=== PATIENT | male | born 1955 | race Caucasian/White ===

== ENCOUNTER 2020-12-03 12:20 | Inpatient (IN) | payer MEDICARE, SELFPAY ==
[2020-12-03] VITALS (9 sets, daily range): BP systolic 152–198; BP diastolic 80–113; PULSE 126–138; RESP 15–19; TEMP 36.6–37.8; O2SAT 95–99; BMI 26.6; BMI 27.2
--- NOTE | 2020-12-03 13:27 | XR_ITS ---
WS: [id number] Portable AP upright chest, 12/03/2020 Clinical Data: tachycardia Comparison: Portable chest, 02/03/2015. Findings: No nodules, masses or effusions are seen. The heart is normal. The pulmonary vascularity is not increased. No pneumonia or pneumothorax is seen. The aortic arch and descending aorta shows mild tortuosity. XR/XR chest 1V portable [id number] Impression: Atherosclerosis.
--- NOTE | 2020-12-03 13:28 | ECG_ITS ---
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 Measurements Intervals [place] Rate: 138 P: 46 GA: 139 QRS: 23 QRSD: 89 T: 55 QT: 371 QTc: 563 Interpretive Statements SINUS TACHYCARDIA NONSPECIFIC T-WAVE ABNORMALITY ABNORMAL RHYTHM ECG No previous ECG available for comparison Electronically Signed On 12-03-2020 19:25:38 CDT by Petr Emmanuel M.D. [id number] f
--- NOTE | 2020-12-03 15:28 | ECG_ITS ---
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 Measurements Intervals [place] Rate: 127 P: 43 MS: 148 QRS: 18 QRSD: 94 T: 27 QT: 293 QTc: 426 Interpretive Statements SINUS TACHYCARDIA Compared to ECG 12/03/2020 13:11:42 T-wave abnormality no longer present Electronically Signed On 12-03-2020 19:28:42 CDT by Petr Emmanuel M.D. [email or web address] [facility] centerfromAtoBnorwalk memorial hospitalGraphenea/store/OM/[id number]
--- NOTE | 2020-12-03 15:44 | W.ED.GENADLT ---
HPI - General Adult General: Chief complaint: General Medical Stated complaint: HIGH HEARTRATE Time Seen by Provider: 12/03/20 15:33 History of Present Illness: HPI narrative: The patient is a 65-year-old male who comes to the ER after he visited his primary care doctor's clinic today. He sent him to the ER for tachycardia. Patient says yesterday he started having symptoms of nausea and vomiting as well as abdominal cramping which turned into diarrhea as well. He says he is having brown vomit and yellowish diarrhea. He says he feels dry in the mouth and lightheaded when he stands up. Heart rate 138 on arrival Onset (ago): hour(s) (18) Severity: moderate Pain Consistency: constant Relieving factors: none Exacerbating factors: none Associated symptoms: Reports nausea, vomiting and weakness; Deny chest pain, cough, dyspnea, fevers/chills, headache(s), rash or short of breath Review of Systems General: Reports: 10 or more systems reviewed and unremarkable except in HPI and below Const: Denies: fatigue Eyes: Denies: change in vision, blurry vision or eye redness ENMT: Denies: throat pain, swelling of lips/tongue, ear or mastoid pain or nasal congestion Card: Denies: chest pain Resp: Denies: dyspnea GI: Reports: nausea, vomiting and diarrhea : Denies: flank pain, urinary frequency or urinary urgency Musc: Denies: neck pain, back pain, extremity pain, joint pain, joint redness, limited range of motion or muscle weakness Skin/Breast: Denies: rash, pruritus, erythema, skin pain or skin tenderness Neuro: Denies: headache(s) Psych: Denies: anxiety or depression Endo: Denies: polyuria All/Imm: Denies: urticaria, throat swelling or tongue swelling Physical Exam Const: COMMON NORMALS: no acute distress, average body habitus, patient oriented x3, no limitations, healthy appearing, alert and well nourished GENERAL APPEARANCE: cooperative, comfortable, well kempt and well developed ORIENTATION/CONSCIOUSNESS: Yes awake, Yes oriented to person, Yes oriented to place and Yes oriented to time HENMT: COMMON NORMALS: normocephalic, external ears normal and Normal external nose present HEAD & SCALP: normal to inspection and normocephalic NOSE: Normal external nose present EXTERNAL EAR: Yes external ears normal MOUTH: Normal oral and palatal mucosa present THROAT: posterior oropharynx normal Eye: COMMON NORMALS: Equal, round and reactive pupils present and EOMs intact bilaterally GENERAL EYE: appearance normal, both eyes and all related structures PUPIL: Yes Equal, round and reactive pupils present Neck/C-Spine: COMMON NORMALS: full ROM, no lymphadenopathy, no meningeal signs and no JVD GENERAL: Yes normal visual inspection Lymph: LYMPHATIC: no lymphadenopathy noted Chest: COMMONS NORMALS: normal inspection of the chest and normal palpation of entire chest wall Resp: COMMON NORMALS: normal respiratory effort, No retractions, No use of accessory muscles, clear to auscultation bilaterally and percussion normal EFFORT & INSPECTION: Yes able to speak in complete sentences AUSCULTATION: clear to auscultation bilaterally PERCUSSION: percussion normal Cardio: COMMON NORMALS: no JVD, regular rhythm, S1 normal heart sound present, S2 normal heart sound present and Peripheral pulses 2+ throughout RATE: tachycardic RHYTHM: regular rhythm HEART SOUNDS: S1 normal heart sound present and S2 normal heart sound present PERIPHERAL PULSES: Peripheral pulses 2+ throughout OTHER: Sinus tachycardia GI: COMMON NORMALS: Normal to inspection, nondistended, normoactive bowel sounds present, Soft to palpation, non-tender and no masses INSPECTION: Yes normal to inspection PALPATION: Yes Soft to palpation : COMMON NORMALS: Yes no CVA tenderness BLADDER/KIDNEY EXAM: Yes no CVA tenderness Back/Pelvis: COMMON NORMALS: no CVA tenderness, thoracic and lumbar spine normal to inspection, no thoracic nor lumbar tenderness and thoraco-lumbar ROM normal Extremity: COMMON NORMALS: normal to inspection, full ROM, capillary refill normal, no joint enlargement and no pedal edema GENERAL: Yes normal exam except as noted Neuro: COMMON NORMALS: patient oriented x3, CN's II-XII intact bilaterally, moves all extremities, no focal motor deficits, no sensory deficits noted and gait normal SENSORIUM/ORIENTATION: Yes alert, Yes oriented to person, Yes oriented to place and Yes oriented to time MENINGEAL SIGNS: Yes no meningeal signs Psych: COMMON NORMALS: mental status grossly normal, Normal thought process present, cooperative, normal affect and speech normal APPEARANCE: Yes well kempt ATTITUDE: Yes calm SPEECH: Yes normal speech THOUGHT PROCESS: Normal thought process present Skin: COMMON NORMALS: no rashes or lesions noted GENERAL SKIN EXAM: no rashes or lesions noted Course Vital Signs: Vital signs: Vital Signs Temperature 98.9 F 12/03/20 20:38 Pulse Rate 134 H 12/03/20 20:38 Respiratory Rate 19 H 12/03/20 20:38 Blood Pressure 171/102 12/03/20 20:38 Pulse Oximetry 95 12/03/20 20:38 MDM - General Adult MDM Narrative: Medical decision making narrative: The patient came to the ER tachycardic with nausea and vomiting. The vomiting was coffee-ground. He says he has a history of heartburn and takes a PPI daily. No previous history of GI bleeding that he knows of. Discussed with Dr. Nunez he will see him and scope him in the morning. Dr. Sevilla accepts for admission. Mild elevated white count. Despite 2 L of IV fluids he continues to be tachycardic. He was given multiple doses of Zofran as well to help with his nausea. Lab Data: Labs: Lab Results 12/03/20 12/03/20 12/03/20 Range/Units 15:58 15:58 15:58 WBC 13.2 H (4.0-10.0) 10^3/ uL RBC 5.79 H (4.1-5.3) 10^6/u L Hgb 17.5 H (11.7-16.6) g/dL Hct 52.8 H (42.0-52.0) % MCV 91.2 (80-94) fL MCH 30.2 (28.0-34.0) pg MCHC 33.1 (30.0-36.0) g/dL RDW 13.0 (12.1-15.1) % Plt Count 264 (130-400) 10^3/c mm MPV 9.6 (7.4-10.4) fL Neut % (Auto) 94.2 % Lymph % (Auto) 2.0 % [place] % (Auto) 3.4 % Eos % (Auto) 0.0 % Baso % (Auto) 0.2 % Neut # (Auto) 12.45 H (1.8-7.7) 10^3/u L Lymph # (Auto) 0.3 L (0.8-4.8) 10^3/u L [place] # (Auto) 0.5 (0.2-0.9) 10^3/u L Eos # (Auto) 0.0 (0.0-0.8) 10^3/u L Baso # (Auto) 0.0 (0.0-0.1) 10^3/u L Nucleated RBC % (a uto) 0 % Nucleated RBCs # 0.0 /100WBC Sodium 139 (136-145) mmol/L Potassium 3.8 (3.5-5.1) mmol/L Chloride 96 L (98-107) mmol/L Carbon Dioxide 29 (22-29) mmol/L Anion Gap 17.8 (5-19) BUN 20 (8-23) mg/dL Creatinine 1.1 (0.7-1.2) mg/dL GFR Calculation 67.2 L (90-130) mL/min Glucose 156 H (65-115) mg/dL Calculated Osmolal ity 294 (285-295) mOsm/k g Lactic Acid 2.8 H (0.5-2.2) mmol/L Lactic Acid (Sepsi s) (0.5-2.2) mmol/L Calcium 10.9 H (8.5-10.5) mg/dL Total Bilirubin 0.4 (0.15-1.2) mg/dL AST 19 (0-40) U/L ALT 20 (0-41) U/L Alkaline Phosphata se 111 (40-130) IU/L Troponin T Baselin e (0-15) ng/L Troponin T 120 Min [place] (0-15) ng/L Delta Troponin T (0-10) ABS# Total Protein 8.1 (6.6-8.7) g/dL Albumin 5.0 (3.5-5.2) g/dL Globulin 3.1 (1.3-4.6) g/dL Lipase 13 (13-60) U/L Urine Color (Yellow) Urine Appearance (CLEAR) Urine pH (5-7) Ur Specific Gravit y (1.005-1.030) Urine Protein (Negative) Urine Glucose (UA) (Normal) Urine Ketones (Negative) Urine Blood (Negative) Urine Nitrate (Negative) Urine Bilirubin (Negative) Urine Urobilinogen (Negative) mg/dL Ur Leukocyte Kristy ase (Negative) Urine RBC (0-2) /hpf Urine WBC (0-5) /hpf Ur Squamous Epith Cells (0-5) /hpf Amorphous Sediment Urine Bacteria (NONE) /hpf 12/03/20 12/03/20 12/03/20 Range/Units 15:58 17:40 19:00 WBC (4.0-10.0) 10^3/ uL RBC (4.1-5.3) 10^6/u L Hgb (11.7-16.6) g/dL Hct (42.0-52.0) % MCV (80-94) fL MCH (28.0-34.0) pg MCHC (30.0-36.0) g/dL RDW (12.1-15.1) % Plt Count (130-400) 10^3/c mm MPV (7.4-10.4) fL Neut % (Auto) % Lymph % (Auto) % [place] % (Auto) % Eos % (Auto) % Baso % (Auto) % Neut # (Auto) (1.8-7.7) 10^3/u L Lymph # (Auto) (0.8-4.8) 10^3/u L [place] # (Auto) (0.2-0.9) 10^3/u L Eos # (Auto) (0.0-0.8) 10^3/u L Baso # (Auto) (0.0-0.1) 10^3/u L Nucleated RBC % (a uto) % Nucleated RBCs # /100WBC Sodium (136-145) mmol/L Potassium (3.5-5.1) mmol/L Chloride (98-107) mmol/L Carbon Dioxide (22-29) mmol/L Anion Gap (5-19) BUN (8-23) mg/dL Creatinine (0.7-1.2) mg/dL GFR Calculation (90-130) mL/min Glucose (65-115) mg/dL Calculated Osmolal ity (285-295) mOsm/k g Lactic Acid (0.5-2.2) mmol/L Lactic Acid (Sepsi s) (0.5-2.2) mmol/L Calcium (8.5-10.5) mg/dL Total Bilirubin (0.15-1.2) mg/dL AST (0-40) U/L ALT (0-41) U/L Alkaline Phosphata se (40-130) IU/L Troponin T Baselin e 23 H (0-15) ng/L Troponin T 120 Min [place] 27.92 H (0-15) ng/L Delta Troponin T 4.92 (0-10) ABS# Total Protein (6.6-8.7) g/dL Albumin (3.5-5.2) g/dL Globulin (1.3-4.6) g/dL Lipase (13-60) U/L Urine Color Yellow (Yellow) Urine Appearance Hazy A (CLEAR) Urine pH 7 (5-7) Ur Specific Gravit y 1.020 (1.005-1.030) Urine Protein Neg (Negative) Urine Glucose (UA) 1+ (Normal) Urine Ketones 1+ H (Negative) Urine Blood Neg (Negative) Urine Nitrate Negative (Negative) Urine Bilirubin Neg (Negative) Urine Urobilinogen Norm (Negative) mg/dL Ur Leukocyte Kristy ase Negative (Negative) Urine RBC None (0-2) /hpf Urine WBC None (0-5) /hpf Ur Squamous Epith Cells 0-4 H (0-5) /hpf Amorphous Sediment Not Reportable Urine Bacteria Trace (NONE) /hpf 12/03/20 Range/Units 19:00 WBC (4.0-10.0) 10^3/ uL RBC (4.1-5.3) 10^6/u L Hgb (11.7-16.6) g/dL Hct (42.0-52.0) % MCV (80-94) fL MCH (28.0-34.0) pg MCHC (30.0-36.0) g/dL RDW (12.1-15.1) % Plt Count (130-400) 10^3/c mm MPV (7.4-10.4) fL Neut % (Auto) % Lymph % (Auto) % [place] % (Auto) % Eos % (Auto) % Baso % (Auto) % Neut # (Auto) (1.8-7.7) 10^3/u L Lymph # (Auto) (0.8-4.8) 10^3/u L [place] # (Auto) (0.2-0.9) 10^3/u L Eos # (Auto) (0.0-0.8) 10^3/u L Baso # (Auto) (0.0-0.1) 10^3/u L Nucleated RBC % (a uto) % Nucleated RBCs # /100WBC Sodium (136-145) mmol/L Potassium (3.5-5.1) mmol/L Chloride (98-107) mmol/L Carbon Dioxide (22-29) mmol/L Anion Gap (5-19) BUN (8-23) mg/dL Creatinine (0.7-1.2) mg/dL GFR Calculation (90-130) mL/min Glucose (65-115) mg/dL Calculated Osmolal ity (285-295) mOsm/k g Lactic Acid (0.5-2.2) mmol/L Lactic Acid (Sepsi s) 1.8 (0.5-2.2) mmol/L Calcium (8.5-10.5) mg/dL Total Bilirubin (0.15-1.2) mg/dL AST (0-40) U/L ALT (0-41) U/L Alkaline Phosphata se (40-130) IU/L Troponin T Baselin e (0-15) ng/L Troponin T 120 Min [place] (0-15) ng/L [place] Troponin T (0-10) ABS# Total Protein (6.6-8.7) g/dL Albumin (3.5-5.2) g/dL Globulin (1.3-4.6) g/dL Lipase (13-60) U/L Urine Color (Yellow) Urine Appearance (CLEAR) Urine pH (5-7) Ur Specific Gravit y (1.005-1.030) Urine Protein (Negative) Urine Glucose (UA) (Normal) Urine Ketones (Negative) Urine Blood (Negative) Urine Nitrate (Negative) Urine Bilirubin (Negative) Urine Urobilinogen (Negative) mg/dL Ur Leukocyte Kristy ase (Negative) Urine RBC (0-2) /hpf Urine WBC (0-5) /hpf Ur Squamous Epith Cells (0-5) /hpf Amorphous Sediment Urine Bacteria (NONE) /hpf Discharge Plan Discharge Patient Disposition: Admitted As Inpatient Admit Provider: Ayah Sevilla Clinical Impression: Coffee ground emesis Condition: Stable Coding Level of Care Code ED Archives Technician for Chg Fwd Exam Comprehensive
[2020-12-03 16:07] LABS: Basophils % 0.2 %; Hematocrit 52.8 % (42.0-52.0); Hemoglobin 17.5 g/dL (11.7-16.6); Lymphocytes # 0.3 10^3/uL (0.8-4.8); Mean Corpuscular HGB Conc 33.1 g/dL (30.0-36.0); Mean Corpuscular Hemoglobin 30.2 pg (28.0-34.0); Mean Corpuscular Volume 91.2 fL (80-94); Mean Platelet Volume 9.6 fL (7.4-10.4); Monocytes # 0.5 10^3/uL (0.2-0.9); Monocytes % 3.4 %; Neutrophils # 12.45 10^3/uL (1.8-7.7); Neutrophils % 94.2 %; Nucleated Red Blood Cells % 0 %; Platelet Count 264 10^3/cmm (130-400); Red Blood Count 5.79 10^6/uL (4.1-5.3); White Blood Count 13.2 10^3/uL (4.0-10.0)
[2020-12-03] MEDS: sodium chloride 0.9% 1,000 ML 999 ML IV ×2 (16:14→17:48)
[2020-12-03] MEDS: ondansetron 2 mg/ML SDV 2 mL 4 MG IVP ×2 (16:14→17:48)
[2020-12-03 16:32] LABS: Alanine Aminotransferase 20 U/L (0-41); Alkaline Phosphatase 111 IU/L (40-130); Anion Gap 17.8 (5-19); Aspartate Amino Transferase 19 U/L (0-40); Blood Urea Nitrogen 20 mg/dL (8-23); Calcium 10.9 mg/dL (8.5-10.5); Carbon Dioxide 29 mmol/L (22-29); Chloride 96 mmol/L (98-107); Globulin 3.1 g/dL (1.3-4.6); Glomerular Filtration Rate 67.2 mL/min (90-130); Glucose 156 mg/dL (65-115); Lipase 13 U/L (13-60); Osmolality Calculated 294 mOsm/kg (285-295); Potassium 3.8 mmol/L (3.5-5.1); Sodium 139 mmol/L (136-145); Total Bilirubin 0.4 mg/dL (0.15-1.2); Total Protein 8.1 g/dL (6.6-8.7)
[2020-12-03 16:33] LABS: Lactic Sepsis W/Reflex 2.8 mmol/L (0.5-2.2); Troponin(5th) Baseline 23 ng/L (0-15)
--- NOTE | 2020-12-03 17:25 | CTR_ITS ---
PROCEDURE INFORMATION: Exam: CT Abdomen And Pelvis With Contrast Exam date and time: 12/03/2020 5:35 PM Age: 65 years old Clinical indication: Nausea and vomiting; Prior surgery; Surgery type: Hernia; Additional info: Vomiting/diarrhea/ coffee ground emesis TECHNIQUE: Imaging protocol: Computed tomography of the abdomen and pelvis with contrast. Radiation optimization: All CT scans at this facility use at least one of these dose optimization techniques: automated exposure control; mA and/or kV adjustment per patient size (includes targeted exams where dose is matched to clinical indication); or iterative reconstruction. Contrast material: OMNI 300; Contrast volume: 95 ml; Contrast route: INTRAVENOUS (IV); COMPARISON: No relevant prior studies available. RADIATION DOSE METRICS: Total DLP (mGy-cm): 1548.92 FINDINGS: Mediastinal space: There is a small hiatal hernia. Liver: There is no focal abnormality within the liver. Gallbladder and bile ducts: There may be a small gallstone in the neck of the gallbladder. Pancreas: The pancreas is normal. Spleen: The spleen is normal. Adrenal glands: The adrenal glands are normal. Kidneys and ureters: The kidneys are normal. There is no evidence of hydronephrosis. Stomach and bowel: There is no evidence of colitis/diverticulitis. There is some mild thickening of a few jejunal loops which could represent some nonspecific enteritis. Appendix: A normal appendix is identified. The aorta demonstrates mild atherosclerotic calcification. There is no evidence of an abdominal aortic aneurysm. Intraperitoneal space: Unremarkable. No free air. No significant fluid collection. Vasculature: Unremarkable. No abdominal aortic aneurysm. Lymph nodes: Unremarkable. No enlarged lymph nodes. Urinary bladder: There is mild thickening of the urinary bladder wall which could represent some muscular hypertrophy from chronic outlet obstruction. Reproductive: The prostate demonstrates mild nonspecific enlargement. The seminal vesicles are normal. Bones/joints: There are chronic appearing compression deformities in the lower thoracic spine. No acute fracture is identified. Soft tissues: There is a large right inguinal hernia containing fat. CT/CT abdomen pelvis w con* [id number] IMPRESSION: 1. Question of mild enteritis. 2. No evidence of bowel obstruction. 3. Large right inguinal hernia containing fat. 4. Other chronic findings as described above. Radiation Dose CTDIVOL = (mGy): DLP = 1548.92 (mGy-cm)
[2020-12-03] MEDS: iohexol 300 mg/mL 100 mL Btl IV (17:47)
[2020-12-03] MEDS: pantoprazole 40 mg SDV IVP (17:48)
[2020-12-03 17:51] LABS: Reflex Lactate Order REFLEX LACTIC ORDERD
[2020-12-03 17:57] LABS: Add Urine Microscopic? YES; Bilirubin Urine Neg (Negative); Blood Urine Neg (Negative); Glucose Urine UA 1+ (Normal); Ketones Urine 1+ (Negative); Leukocyte Esterase Urine Negative (Negative); Nitrate Urine Negative (Negative); Protein Urine Neg (Negative); Urine Appearance Hazy (CLEAR); Urine Color Yellow (Yellow); Urobilinogen Urine Norm (Negative); pH Urine 7 (5-7)
[2020-12-03 17:58] LABS: Bacteria Urine TRACE /hpf; Squamous Epithelial Cell Urine 0-4 /hpf (0-5)
--- NOTE | 2020-12-03 19:28 | ECG_ITS ---
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 Measurements Intervals [place] Rate: 132 P: 29 IA: 128 QRS: 17 QRSD: 93 T: 59 QT: 332 QTc: 493 Interpretive Statements SINUS TACHYCARDIA NONSPECIFIC T-WAVE ABNORMALITY ABNORMAL RHYTHM ECG Compared to ECG 12/03/2020 17:14:18 T-wave abnormality now present Electronically Signed On 12-09-2020 7:12:04 CDT by Phylicia Chisholm M.D. [email or web address] [facility] [id number]
[2020-12-03 19:44] LABS: Lactic Acid level (Lactate) 1.8 mmol/L (0.5-2.2)
[2020-12-03 19:47] LABS: Troponin 5 2HR 27.92 ng/L (0-15); Troponin 5 2HR Delta 4.92 ABS# (0-10)
[2020-12-03 22:31] LABS: Troponin 5 6HR 23.38 ng/L (0-15); Troponin 5 6HR Delta 0.38 ng/L (0-12)
--- NOTE | 2020-12-03 22:50 | P.HP_ITS ---
Providers/Chief Complaint Admitting Physician: Ayah Sevilla MD Chief Complaint: HIGH HEARTRATE History of Present Illness Kemal Falk is a 65 year old male with h/o HTN, not on any medications, possible gatsritis who presented to ER today with c/o multiple episodes of vomiting that started last night at 9Pm, was somewhat relieved with taking anna seltzer overnight, however returned at 9 am today. Estimates having had at least 10-15 episodes. Also c/o cramping intermittent pain in the right upper quadrant, which he attributes to excessive retching. Vomitus containes black-brown coffee ground appearing material, denies seeing any fresh blood. Does not recall if initial episodes appeared to be different. States he has been diagnosed with stomach ulcers in the past, however per description this was a clinical diagnosis, he has never been evaluated with endoscopy. No recent weight loss. He attributes episodic heartburn to stressors in his life, mostly revolving around the care of his animals. Additionally reports 4-5 episodes of diarrhea since last night, stools are brown-yellow, non bloody, no mucus or frothing. No tenesmus. No sick contacts. No recent abx use. No other sick contacts at home. H/o bleeding per rectum 4-5 years evaluated with colonoscopy- MARY per patient. Denies any fever, T max here 99.1F. No h/o alcohol use. Denies NSAId use. NOt on any anti platelets or anticoagulants. Incidnetally HR noted to be 134 bpm, sinus tachycardia, states HR often runs high but unable to quantify. Is a known hypertensive, has declined medication in the past. No known h/o DM. Review of Systems General: Reports: 10 or more systems reviewed and unremarkable except in HPI and below Const: Denies: fever(s), chills or body aches Eyes: Denies: change in vision, blurry vision or photophobia ENMT: Reports: hoarseness; Denies: throat pain, enlarged tonsils, odynophagia or nasal congestion Card: Denies: chest pain, palpitations, irregular heart rhythm, edema, swel ling of feet/ankles, lightheadedness, pre-syncope, dyspnea on exertion or orthopnea Resp: Denies: dyspnea, productive cough, non-productive cough, wheezing, stridor, pain on inspiration, change in phlegm color, hemoptysis or chest congestion GI: Denies: abdominal pain, nausea, vomiting, hematemesis, coffee ground emesis, dysphagia, heartburn, diarrhea, constipation, GI cramping, change in stool character, hematochezia or melena : Denies: flank pain, dysuria, urinary frequency, urinary urgency, urinary hesitancy or hematuria Musc: Denies: neck pain, back pain, extremity pain, joint swelling, joint warmth or deformity Neuro: Denies: headache(s), numbness in extremities, weakness in extremities, sensory changes, difficulty walking, frequent falls, dizziness, vertigo, behavioral changes, Slurred speech present or seizure-like activity Psych: Denies: anxiety, depression, suicidal ideation or homicidal ideation Endo: Denies: polyuria, polydipsia, tired all the time, cold intolerance or hot flashes Sunil/Lymph: Denies: easy bruising or easy bleeding Medications/Allergies Home Medications Medication Instructions Recorded Confirmed Last Taken Type Vitamin C 1 tab PO DAILY 12/03/20 12/03/20 12/02/20 History diphenhydramine HCl [Benadryl 25 mg PO Q6H PRN 12/03/20 12/03/20 12/02/20 History Allergy] multivit,calc,svz-CC-D5-lycop 1 tab PO DAILY 12/03/20 12/03/20 12/02/20 History [One-A-Day Men's Complete] jmdxwp-[id number]-lpw palm-min 17 1 cap PO DAILY 12/03/20 12/03/20 12/02/20 History [Prostate Therapy] potassium 1 tab PO DAILY 12/03/20 12/03/20 12/02/20 History vitamin E 1 tab PO DAILY 12/03/20 12/03/20 12/02/20 History Allergies Allergy/AdvReac Type Severity Reaction Status Date / Time acetaminophen [From Tylenol] Allergy Unknown Verified 12/03/20 13:08 STERIODS Allergy Unknown Uncoded 12/03/20 13:08 PFSH Acute PFSH: Medical History Hypertension Surgical History H/O hernia repair Social History (Updated 12/03/20 @ 23:02 by Ayah Sevilla MD) Smoking and tobacco status: never smoked Alcohol intake: former Vitals/I&O/Wt Last Vital Signs Temp 98.9 F 12/03/20 20:38 Pulse 134 H 12/03/20 20:38 Resp 19 H 12/03/20 20:38 BP 171/102 12/03/20 20:38 Pulse Ox 95 12/03/20 20:38 12/03/20 12/03/20 12/03/20 06:59 14:59 22:59 Intake Total 1999 Balance 1999 Weight last 48 hrs Weight 81.374 kg Weight 79.379 kg Physical Exam Narrative: EXAM NARRATIVE: General: No acute distress, AO x3, mild dehydration HEENT: PERRLA, pupils bilaterally equal and reactive, pallors not present Chest: Normal vesicular breath sounds, no added sounds, equal good air entry bilaterally CVS: S1-S2 regular, no murmurs, no tachycardia, no gallops, no rubs Abdomen: Soft, nontender, no organomegaly, bowel sounds present Neuro: No focal deficits, no facial deformity, AO x3, power 5/5 in all limbs Extremities: no swelling, edema or clubbing Data : 12/03/20 15:58 12/03/20 15:58 Micro: Microbiology 12/03/20 19:00 Blood Culture - Preliminary Blood SPECIMEN COLLECTED 12/03/20 15:58 Blood Culture - Preliminary Blood SPECIMEN COLLECTED Attestation for Other Data: I personally reviewed and interpreted the following: Other data: Laboratory Results WBC 13.2 10^3/uL (4.0-10.0) H 12/03/20 15:58 RBC 5.79 10^6/uL (4.1-5.3) H 12/03/20 15:58 Hgb 17.5 g/dL (11.7-16.6) H 12/03/20 15:58 Hct 52.8 % (42.0-52.0) H 12/03/20 15:58 MCV 91.2 fL (80-94) 12/03/20 15:58 MCH 30.2 pg (28.0-34.0) 12/03/20 15:58 MCHC 33.1 g/dL (30.0-36.0) 12/03/20 15:58 RDW 13.0 % (12.1-15.1) 12/03/20 15:58 Plt Count 264 10^3/cmm (130-400) 12/03/20 15:58 MPV 9.6 fL (7.4-10.4) 12/03/20 15:58 Neut % (Auto) 94.2 % 12/03/20 15:58 Lymph % (Auto) 2.0 % 12/03/20 15:58 [place] % (Auto) 3.4 % 12/03/20 15:58 Eos % (Auto) 0.0 % 12/03/20 15:58 Baso % (Auto) 0.2 % 12/03/20 15:58 Neut # (Auto) 12.45 10^3/uL (1.8-7.7) H 12/03/20 15:58 Lymph # (Auto) 0.3 10^3/uL (0.8-4.8) L 12/03/20 15:58 [place] # (Auto) 0.5 10^3/uL (0.2-0.9) 12/03/20 15:58 Eos # (Auto) 0.0 10^3/uL (0.0-0.8) 12/03/20 15:58 Baso # (Auto) 0.0 10^3/uL (0.0-0.1) 12/03/20 15:58 Nucleated RBC % (auto) 0 % 12/03/20 15:58 Nucleated RBCs # 0.0 /100WBC 12/03/20 15:58 Sodium 139 mmol/L (136-145) 12/03/20 15:58 Potassium 3.8 mmol/L (3.5-5.1) 12/03/20 15:58 Chloride 96 mmol/L (98-107) L 12/03/20 15:58 Carbon Dioxide 29 mmol/L (22-29) 12/03/20 15:58 Anion Gap 17.8 (5-19) 12/03/20 15:58 BUN 20 mg/dL (8-23) 12/03/20 15:58 Creatinine 1.1 mg/dL (0.7-1.2) 12/03/20 15:58 GFR Calculation 67.2 mL/min (90-130) L 12/03/20 15:58 Glucose 156 mg/dL (65-115) H 12/03/20 15:58 Calculated Osmolality 294 mOsm/kg (285-295) 12/03/20 15:58 Lactic Acid 2.8 mmol/L (0.5-2.2) H 12/03/20 15:58 Lactic Acid (Sepsis) 1.8 mmol/L (0.5-2.2) 12/03/20 19:00 Calcium 10.9 mg/dL (8.5-10.5) H 12/03/20 15:58 Total Bilirubin 0.4 mg/dL (0.15-1.2) 12/03/20 15:58 AST 19 U/L (0-40) 12/03/20 15:58 ALT 20 U/L (0-41) 12/03/20 15:58 Alkaline Phosphatase 111 IU/L (40-130) 12/03/20 15:58 Troponin T Baseline 23 ng/L (0-15) H 12/03/20 15:58 Troponin T 120 Minute 27.92 ng/L (0-15) H 12/03/20 19:00 Delta Troponin T 4.92 ABS# (0-10) 12/03/20 19:00 Troponin T Hi Sens 6Hr 23.38 ng/L (0-15) H 12/03/20 22:01 Troponin T Hi Sens 6Hr Delta 0.38 ng/L (0-12) 12/03/20 22:01 Total Protein 8.1 g/dL (6.6-8.7) 12/03/20 15:58 Albumin 5.0 g/dL (3.5-5.2) 12/03/20 15:58 Globulin 3.1 g/dL (1.3-4.6) 12/03/20 15:58 Lipase 13 U/L (13-60) 12/03/20 15:58 Urine Color Yellow (Yellow) 12/03/20 17:40 Urine Appearance Hazy (CLEAR) A 12/03/20 17:40 Urine pH 7 (5-7) 12/03/20 17:40 Ur Specific [place] 1.020 (1.005-1.030) 12/03/20 17:40 Urine Protein Neg (Negative) 12/03/20 17:40 Urine Glucose (UA) 1+ (Normal) 12/03/20 17:40 Urine Ketones 1+ (Negative) H 12/03/20 17:40 Urine Blood Neg (Negative) 12/03/20 17:40 Urine Nitrate Negative (Negative) 12/03/20 17:40 Urine Bilirubin Neg (Negative) 12/03/20 17:40 Urine Urobilinogen Norm mg/dL (Negative) 12/03/20 17:40 Ur Leukocyte Esterase Negative (Negative) 12/03/20 17:40 Urine RBC None /hpf (0-2) 12/03/20 17:40 Urine WBC None /hpf (0-5) 12/03/20 17:40 Ur Squamous Epith Cells 0-4 /hpf (0-5) H 12/03/20 17:40 Amorphous Sediment Not Reportable 12/03/20 17:40 Urine Bacteria Trace /hpf (NONE) 12/03/20 17:40 Impressions Chest X-Ray 12/03/20 13:27 Impression: Atherosclerosis. Abdomen/Pelvis CT 12/03/20 17:25 IMPRESSION: 1. Question of mild enteritis. 2. No evidence of bowel obstruction. 3. Large right inguinal hernia containing fat. 4. Other chronic findings as described above. Radiation Dose CTDIVOL = (mGy): DLP = 1548.92 (mGy-cm) A&P Assessment and plan (1) Sepsis: Meets criteria by way of leukocytosis, tachycardia, elevated lactate Source may be possible enteritis as noted on CT abdomen IVF D5NS @ 75cc/hr, does not need boluses at this time given hypertension Trend lactate empiric ceftriaxone and flagyl Blood cx taken in the ER prior to abx Status: Acute Qualifiers: Sepsis type: sepsis due to unspecified organism Sepsis acute organ dysfunction status: without acute organ dysfunction Qualified Code(s): A41.9 - Sepsis, unspecified organism (2) Hematemesis: May be related to gastritis +/- ulcer vs Sindy Wiess tear from excess vomiting HB currently stable at 17, rpt with am labs hemodynamically stable currently Protonix iv infusion @ 8mg/hr NPO for possible UGIE in am Dr. Nunez consulted from ER Status: Acute Qualifiers: Nausea presence: without nausea Qualified Code(s): K92.0 - Hematemesis (3) Enteritis: check Enteric panel, c diff panel Leukocytosis noted, may be related to hemoconcentration from dehydration vs infectious process Ceftriaxone and Flagyl empirically for now while undergoing sepsis w/up Status: Acute (4) Hypertension: Metoprolol 5mg iv now Reports feeling anxious, Xanax 0.25 mg BP at home ranges between 140-150 systolic If persistent elevated after metoprolol and xanax, will start amlodipine Status: Acute Qualifiers: Hypertension type: essential hypertension Qualified Code(s): I10 - Essential (primary) hypertension (5) Sinus tachycardia: telemetry monitoring Sinus tachycardia which maybe related to dehydration, anxiety and vomiting IVF as above prn metoprolol for persistent HR >130, if BP permits Status: Acute Additional A&P Information DVT ppx: SCDs only given GI bleed Full code Attestations Medical Necessity Statement*: Anticipate >2 midnight admission for GI bleed, Need for IVF, protonix infusion, HB monitoing, likely UGIE, enteritis and sepsis needing iv antibiotics Coding Level of Care Code 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
[2020-12-03] MEDS: metoprolol tartrate 1 mg/1 mL SDV 5 mL 2.5 MG IV (23:47)
[2020-12-04] VITALS (8 sets, daily range): BP systolic 114–149; BP diastolic 74–88; PULSE 105–121; RESP 18–20; TEMP 37.2–37.9; O2SAT 91–97
[2020-12-04] MEDS: ALPRAZolam 0.25 mg Tablet PO (00:02)
[2020-12-04] MEDS: cefTRIAXone 1,000 MG in sodium chloride 0.9% (plus) 50 ML 100 MG IV (00:02)
[2020-12-04] MEDS: dextrose 5%-sod chloride 0.9% 1,000 ML 75 ML IV ×2 (00:02→16:55)
[2020-12-04] MEDS: metroNIDAZOLE IV 500 MG/100 ML PREMIX 100 MG IV ×3 (00:43→16:48)
[2020-12-04] MEDS: pantoprazole 40 MG in sodium chloride 0.9% (plus) 100 ML 20 MG IV ×5 (01:36→21:09)
[2020-12-04 04:55] LABS: Basophils % 0.1 %; Hematocrit 44.4 % (42.0-52.0); Hemoglobin 14.5 g/dL (11.7-16.6); Lymphocytes # 0.7 10^3/uL (0.8-4.8); Lymphocytes % 6.9 %; Mean Corpuscular HGB Conc 32.7 g/dL (30.0-36.0); Mean Corpuscular Hemoglobin 30.4 pg (28.0-34.0); Mean Corpuscular Volume 93.1 fL (80-94); Mean Platelet Volume 9.8 fL (7.4-10.4); Monocytes # 0.7 10^3/uL (0.2-0.9); Monocytes % 7.2 %; Neutrophils # 8.58 10^3/uL (1.8-7.7); Neutrophils % 85.5 %; Nucleated Red Blood Cells % 0 %; Platelet Count 205 10^3/cmm (130-400); Red Blood Count 4.77 10^6/uL (4.1-5.3); Red Cell Distribution Width 13.2 % (12.1-15.1)
[2020-12-04 05:00] LABS: INR 1.14 (0.8-1.2)
[2020-12-04 05:16] LABS: Alanine Aminotransferase 13 U/L (0-41); Albumin Level 3.7 g/dL (3.5-5.2); Alkaline Phosphatase 77 IU/L (40-130); Anion Gap 10.7 (5-19); Aspartate Amino Transferase 14 U/L (0-40); Blood Urea Nitrogen 18 mg/dL (8-23); Calcium 8.6 mg/dL (8.5-10.5); Carbon Dioxide 28 mmol/L (22-29); Chloride 105 mmol/L (98-107); Globulin 2.9 g/dL (1.3-4.6); Glomerular Filtration Rate 67.2 mL/min (90-130); Glucose 124 mg/dL (65-115); Osmolality Calculated 293 mOsm/kg (285-295); Potassium 3.7 mmol/L (3.5-5.1); Sodium 140 mmol/L (136-145); Total Bilirubin 0.3 mg/dL (0.15-1.2); Total Protein 6.6 g/dL (6.6-8.7)
[2020-12-04 06:25] LABS: Estmated Average Glucose 117; Hemoglobin A1C 5.7 % (4.0-6.0)
--- NOTE | 2020-12-04 12:18 | PC.CHAP ---
Pastoral Care Encounter/Spiritual Assessment Type of Contact [] Declined check processing clerk visit [] Patient/Family/Request visit [] Outpatient visit [] Follow-up visit [] Physician referral [] Code/Alert [] Routine visit [] Staff referral [] Actively dying [xx] Patient sleeping [] Family support [] [] Out of room [] Palliative care [] [] Receiving care in room [] Pre-surgical visit [] Trauma [] Long length of stay [] ICU visit [xx] Other: Spouse present. Relational/Emotional Strength [] Patient feels connected with others/family/visitors/staff [] Distress [] Loneliness/isolation [] Abandonment Spirituality of Patient [] Person of Dana [] Attends Alevism of their Dana [xx] Believes in Prayer [] Reads Bible or Roman Catholic materials [] There are Spiritual issues to be addressed Recruitment Specialist Interventions [xx] Prayer [xx] Active listening [xx] Non-anxious presence [] Spiritual/emotional support [] Crisis/trauma care [] Spiritual counseling [] Bereavement support [] Provided bereavement packet [xx] Provided Bible/devotional materials [] Provided toy/stuffed animal, coloring book to patient or family member [] Provided Communion [] Anointing/[place] [] Salvation [xx] Completed spiritual assessment [] Other: Impact on Illness or Injury [] Angry [] Fearful [] Anxious [] Often cries [] Exhaustion [] Unable to work [] Unable to attend congregation [] Unable to walk/stand [] Unable to read [] Unable to drive [] Unable to eat/drink [] Unable to sleep [] Unable to be with family [] Patient intubated [] Other: Summary Spouse accepted [employer]. She wanted prayer for her but also wanted visit kept short to not disturb her sleeping /patient. Time spent with patient 4 minutes
--- NOTE | 2020-12-04 16:28 | P.PN_ITS ---
Subjective Subjective: Interval history: Overall doing all right. Tiny bit better. And episode of coffee-ground emesis earlier today. Denies abdominal pain. Currently no diarrhea. Reports has had problems with stomach ulcers in the past. Vitals/I&O/Wt Last Vital Signs Temp 100.0 F H 12/04/20 15:27 Pulse 107 H 12/04/20 15:27 Resp 18 12/04/20 15:27 BP 134/88 12/04/20 15:27 Pulse Ox 95 12/04/20 15:27 12/04/20 12/04/20 12/04/20 06:59 14:59 22:59 Intake Total 921.25 / 2921.25 200 / 200 528.75 / 728.75 Output Total 200 / 200 Balance 921.25 / 2921.25 0 / 0 528.75 / 528.75 Weight last 48 hrs Weight 81.374 kg Weight 79.379 kg Physical Exam Const: COMMON NORMALS: no acute distress, patient oriented x3 and alert OR IENTATION/CONSCIOUSNESS: Yes awake HENMT: COMMON NORMALS: oropharynx normal Neck/C-Spine: COMMON NORMALS: no JVD Resp: COMMON NORMALS: normal respiratory effort and clear to auscultation bilaterally AUSCULTATION: clear to auscultation bilaterally Cardio: COMMON NORMALS: no JVD, regular rhythm, S1 normal heart sound present, S2 normal heart sound present and No murmurs present (Cardio) RHYTHM: regular rhythm HEART SOUNDS: S1 normal heart sound present and S2 normal heart sound present GI: COMMON NORMALS: Normal to inspection, nondistended, normoactive bowel sounds present, Soft to palpation and non-tender PALPATION: Yes Soft to palpation Extremity: COMMON NORMALS: no joint enlargement and no pedal edema Neuro: COMMON NORMALS: patient oriented x3 and moves all extremities SENSORIUM/ORIENTATION: Yes alert Skin: COMMON NORMALS: no rashes or lesions noted GENERAL SKIN EXAM: no rashes or lesions noted Data : 12/04/20 04:17 12/04/20 04:17 Micro: Microbiology 12/03/20 15:58 Blood Culture - Preliminary Blood NEGATIVE TO DATE 12/03/20 19:00 Blood Culture - Preliminary Blood SPECIMEN COLLECTED A&P Assessment and plan (1) Sepsis: Laboratory low-grade fever, 100 Fahrenheit. No leukocytosis. Sinus tachycardia 107. Suspected enteritis. No other new complaints. Blood cultures for without growth. Continue Rocephin, Flagyl. Stool studies so far not collected, but ordered. Follow-up. N.p.o. Continue hydration. Status: Acute Qualifiers: Sepsis type: sepsis due to unspecified organism Sepsis acute organ dysfunction status: without acute organ dysfunction Qualified Code(s): A41.9 - Sepsis, unspecified organism (2) Hematemesis: Coffee-ground emesis earlier today for recheck hemoglobin. Continue Protonix drip. Surgical assessment. May be related to gastritis +/- ulcer vs Sindy Wiess tear from excess vomiting NPO Status: Acute Qualifiers: Nausea presence: without nausea Qualified Code(s): K92.0 - Hematemesis (3) Enteritis: C. difficile, check Enteric enteric bacterial pso far no further stool. Leukocytosis resolved. May be related to hemoconcentration from dehydration vs infectious process Continue empiric ceftriaxone, Flagyl. Status: Acute (4) Hypertension: Blood pressure now closer to goal. 134/88. Monitor. Currently n.p.o. Appears to have responded to metoprolol IV. Continue for now with metoprolol IV as needed. Status: Acute Qualifiers: Hypertension type: essential hypertension Qualified Code(s): I10 - Essential (primary) hypertension (5) Sinus tachycardia: Continue telemetry monitoring. Treat colitis. Recheck hemoglobin. Continue IV rehydration. Status: Acute Additional A&P Information DVT ppx: SCDs only given GI bleed Full code Attestations Medical Necessity Statement*: Continue admission for assessment management of enteritis with sepsis, upper GI bleed. 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
[2020-12-04 17:37] LABS: Hemoglobin 14.3 g/dL (11.7-16.6)
--- NOTE | 2020-12-04 18:01 | PM.CONSULT ---
Providers/Reason For Consult Consulting Physican/Specialty*: General Surgery Dr. Nunez Reason for Consult*: Coffee-ground emesis Attending Physician: Matt Givens History of Present Illness History of Present Illness Kemal Falk is a 65 year old male who presented to the ER patient is admitted to the hospital and since then he has not had any further diarrhea but continues to spit up black material. Patient denies any abdominal pain today. He states that his been diagnosed with peptic ulcer disease in the past. He has never had a EGD but has had a colonoscopy for 5 years ago. Patient is a non-smoker denies any weight loss. He states that he had a right inguinal hernia repair many years ago and his hernia subsequently recurred but he denies any right groin pain Review of Systems General: Reports: 10 or more systems reviewed and unremarkable except in HPI and below Meds/Allergies Home Medications and Allergies Home Medications Medication Instructions Recorded Confirmed Last Taken Type Vitamin C 1 tab PO DAILY 12/03/20 12/03/20 12/02/20 History diphenhydramine HCl [Benadryl 25 mg PO Q6H PRN 12/03/20 12/03/20 12/02/20 History Allergy] multivit,calc,dpi-PL-O2-lycop 1 tab PO DAILY 12/03/20 12/03/20 12/02/20 History [One-A-Day Men's Complete] dtlqhc-ilnlxpn-ttt palm-min 17 1 cap PO DAILY 12/03/20 12/03/20 12/02/20 History [Prostate Therapy] potassium 1 tab PO DAILY 12/03/20 12/03/20 12/02/20 History vitamin E 1 tab PO DAILY 12/03/20 12/03/20 12/02/20 History Allergies Allergy/AdvReac Type Severity Reaction Status Date / Time acetaminophen [From Tylenol] Allergy Unknown Verified 12/03/20 13:08 STERIODS Allergy Unknown Uncoded 12/03/20 13:08 Current Medications Current Medications Generic Name Dose Route Start Last Admin Trade Name Freq PRN Reason Stop Dose Admin Dextrose/Sodium Chloride 1,000 mls @ 75 mls/hr 12/03/20 23:15 12/04/20 16:55 Dextrose 5%-Sod Chloride 0.9% IV 75 mls/hr .[id number] YOSELYN Administration Ceftriaxone Sodium 1,000 mg/ 50 mls @ 100 mls/hr 12/03/20 23:15 12/04/20 00:54 Sodium Chloride IV Infused Q24H YOSELYN Infusion Protocol Metronidazole 500 mg in 100 mls @ 100 mls/hr 12/03/20 23:15 12/04/20 17:46 Flagyl Iv IV Infused Q8H YOSELYN Infusion Protocol Pantoprazole Sodium 40 mg/ 100 mls @ 20 mls/hr 12/03/20 23:15 12/04/20 16:48 Sodium Chloride IV 8 mg/hr .Q5H YOSELYN 20 mls/hr Administration 8 MG/HR PFSH Acute PFSH: Medical History Hypertension Recurrent right inguinal hernia Surgical History Status post colonoscopy Status post right inguinal hernia repair Social History Smoking and tobacco status: never smoked Alcohol intake: former Vitals/I&O/Wt Last Vital Signs Temp 100.0 F H 12/04/20 15:27 Pulse 107 H 12/04/20 15:27 Resp 18 12/04/20 15:27 BP 134/88 12/04/20 15:27 Pulse Ox 95 12/04/20 15:27 12/04/20 12/04/20 12/04/20 06:59 14:59 22:59 Intake Total 921.25 / 2921.25 200 / 925.083 725.083 / 925.083 Output Total 200 / 450 250 / 450 Balance 921.25 / 2921.25 0 / 475.083 475.083 / 475.083 Weight last 48 hrs Weight 179 lb 6.4 oz Weight 175 lb Physical Exam Narrative: EXAM NARRATIVE: HEENT: Normocephalic Eye: Sclera /conjunctiva normal Respiratory and chest: Bilateral clear breath sounds on auscultation Cardiovascular: Normal S1 and S2 heart sounds Abdomen: Soft to palpation Neurological: Oriented to place person and time Skin: Intact, no lesions appreciated on gross exam Data Micro: Micro: Microbiology 12/03/20 15:58 Blood Culture - Pr eliminary Blood NEGATIVE TO VERONA E 12/03/20 19:00 Blood Culture - Pr eliminary Blood SPECIMEN COLLEC YESICA A&P Assessment and plan (1) Coffee ground emesis: 65-year-old male with abdominal pain, coffee-ground emesis and diarrhea. He continues to have coffee-ground emesis but is otherwise hemodynamically stable Continue Protonix Plan for EGD under MAC Full liquid diet now N.p.o. after midnight Procedure, risks, benefits and alternatives have been discussed with the patient who wishes to proceed with surgery. Status: Acute (2) Recurrent right inguinal hernia: 65-year-old male with asymptomatic recurrent right inguinal hernia with CT scan showing incarcerated fat. At this point he is asymptomatic. 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
[2020-12-05] VITALS (11 sets, daily range): BP systolic 111–152; BP diastolic 62–93; PULSE 85–105; RESP 18–19; TEMP 36.6–37.7; O2SAT 94–98
[2020-12-05] MEDS: cefTRIAXone 1,000 MG in sodium chloride 0.9% (plus) 50 ML 100 MG IV (00:08)
[2020-12-05] MEDS: metroNIDAZOLE IV 500 MG/100 ML PREMIX 100 MG IV ×2 (00:50→06:44)
[2020-12-05] MEDS: pantoprazole 40 MG in sodium chloride 0.9% (plus) 100 ML 20 MG IV ×3 (02:17→13:58)
[2020-12-05 05:47] LABS: Basophils % 0.6 %; Eosinophils % 0.6 %; Hematocrit 44.8 % (42.0-52.0); Hemoglobin 14.5 g/dL (11.7-16.6); Lymphocytes # 0.8 10^3/uL (0.8-4.8); Lymphocytes % 15.7 %; Mean Corpuscular HGB Conc 32.4 g/dL (30.0-36.0); Mean Corpuscular Hemoglobin 30.5 pg (28.0-34.0); Mean Corpuscular Volume 94.3 fL (80-94); Mean Platelet Volume 9.6 fL (7.4-10.4); Monocytes # 0.6 10^3/uL (0.2-0.9); Monocytes % 11.8 %; Neutrophils # 3.49 10^3/uL (1.8-7.7); Neutrophils % 71.3 %; Nucleated Red Blood Cells % 0 %; Platelet Count 178 10^3/cmm (130-400); Red Blood Count 4.75 10^6/uL (4.1-5.3); White Blood Count 4.9 10^3/uL (4.0-10.0)
[2020-12-05 06:20] LABS: Alanine Aminotransferase 13 U/L (0-41); Albumin Level 3.3 g/dL (3.5-5.2); Alkaline Phosphatase 76 IU/L (40-130); Anion Gap 10.8 (5-19); Aspartate Amino Transferase 17 U/L (0-40); Blood Urea Nitrogen 17 mg/dL (8-23); Calcium 7.9 mg/dL (8.5-10.5); Carbon Dioxide 26 mmol/L (22-29); Chloride 106 mmol/L (98-107); Creatinine Clr Calc Pharmacy 70.8042; Globulin 2.8 g/dL (1.3-4.6); Glomerular Filtration Rate 67.2 mL/min (90-130); Glucose 105 mg/dL (65-115); Osmolality Calculated 290 mOsm/kg (285-295); Potassium 3.8 mmol/L (3.5-5.1); Sodium 139 mmol/L (136-145); Total Bilirubin 0.2 mg/dL (0.15-1.2); Total Protein 6.1 g/dL (6.6-8.7)
[2020-12-05] MEDS: dextrose 5%-sod chloride 0.9% 1,000 ML 75 ML IV (06:45)
--- NOTE | 2020-12-05 07:43 | ANES.PREANE2 ---
Pre-Anesthetic Assessment Pre-Anesthetic Assessment: Height/Weight: Height 1.73 m Weight 84.323 kg Temp Pulse Resp BP Pulse Ox 98.6 F 97 18 152/93 95 12/05/20 07:33 12/05/20 07:33 12/05/20 07:33 12/05/20 07:33 12/05/20 07:33 Preop Diagnosis: Coffee-ground emesis Proposed Procedure: Operation Date: 12/05/20 08:00 Proposed Procedures p EGD(Not Applicable) - Nishant Nunez MD Familial anesthetic complications: None Was Beta Kaylie taken within 24 hours: N/A Was Clonidine taken within 24 hours: N/A Last intake: None Social: Social History: No alcohol and No tobacco Exam: Pre-Anes Outpt Exam: alert, oriented x 3, clear to auscultation bilaterally and regular rate & rhythm Airway: Cervical ROM: WNL MP: 4 Dentition: Other (none, edentulous) Pulmonary: Pulmonary: Asthma CV/HEM: CV/HEM: Arrythmia (tachycardic on admission) and HTN Anesthetic Plan: ASA status: 3 Anesthesia: MAC Risk of > 500 ml blood loss (7ml/kg in children): No Meds/Allergies Current Medications: Current Medications Generic Name Dose Route Start Last Admin Trade Name Freq PRN Reason Stop Dose Admin Dextrose/Sodium Ch loride 1,000 mls @ 75 ml s/hr 12/03/20 23:15 12/05/20 06:45 Dextrose 5%-Sod Chloride 0.9% IV 75 mls/hr .[id number] YOSELYN Administration Ceftriaxone Sodium 1,000 mg/ 50 mls @ 100 mls/ hr 12/03/20 23:15 12/05/20 00:40 Sodium Chloride IV Infused Q24H YOSELYN Infusion Protocol Metronidazole 500 mg in 100 mls @ 100 mls/hr 12/03/20 23:15 12/05/20 06:44 Flagyl Iv IV 100 mls/hr Q8H YOSELYN Administration Protocol Pantoprazole [place]od[place] m 40 mg/ 100 mls @ 20 mls/ hr 12/03/20 23:15 12/05/20 06:44 Sodium Chloride IV 8 mg/hr .Q5H YOSELYN 20 mls/hr Administration 8 MG/HR PFSH Anesthesia PFSH: Medical History Hypertension Recurrent right inguinal hernia Surgical History Status post colonoscopy Status post right inguinal hernia repair Social History Smoking and tobacco status: never smoked Alcohol intake: former Data Anesthesia CBC & Chem 7: 12/05/20 05:21 12/05/20 05:21 Other Labs: Laboratory Results - last 48 hr 12/03/20 12/03/20 12/03/20 15:58 15:58 15:58 WBC 13.2 H RBC 5.79 H Hgb 17.5 H Hct 52.8 H MCV 91.2 MCH 30.2 MCHC 33.1 RDW 13.0 Plt Count 264 MPV 9.6 Neut % (Auto) 94.2 Lymph % (Auto) 2.0 [place] % (Auto) 3.4 Eos % (Auto) 0.0 Baso % (Auto) 0.2 Neut # (Auto) 12.45 H Lymph # (Auto) 0.3 L [place] # (Auto) 0.5 Eos # (Auto) 0.0 Baso # (Auto) 0.0 Nucleated RBC % (auto) 0 Nucleated RBCs # 0.0 PT INR Sodium 139 Potassium 3.8 Chloride 96 L Carbon Dioxide 29 Anion Gap 17.8 BUN 20 Creatinine 1.1 GFR Calculation 67.2 L Glucose 156 H Estimat Average Glucose Hemoglobin A1c Calculated Osmolality 294 Lactic Acid 2.8 H Lactic Acid (Sepsis) Calcium 10.9 H Total Bilirubin 0.4 AST 19 ALT 20 Alkaline Phosphatase 111 Troponin T Baseline Troponin T 120 Minute Delta Troponin T Troponin T Hi Sens 6Hr Troponin T Hi Sens 6Hr Delta Total Protein 8.1 Albumin 5.0 Globulin 3.1 Lipase 13 Urine Color Urine Appearance Urine pH Ur Specific [place] Urine Protein Urine Glucose (UA) Urine Ketones Urine Blood Urine Nitrate Urine Bilirubin Urine Urobilinogen Ur Leukocyte Esterase Urine RBC Urine WBC Ur Squamous Epith Cells Amorphous Sediment Urine Bacteria 12/03/20 12/03/20 12/03/20 15:58 17:40 19:00 WBC RBC Hgb Hct MCV MCH MCHC RDW Plt Count MPV Neut % (Auto) Lymph % (Auto) [place] % (Auto) Eos % (Auto) Baso % (Auto) Neut # (Auto) Lymph # (Auto) [place] # (Auto) Eos # (Auto) Baso # (Auto) Nucleated RBC % (auto) Nucleated RBCs # PT INR Sodium Potassium Chloride Carbon Dioxide Anion Gap BUN Creatinine GFR Calculation Glucose Estimat Average Glucose Hemoglobin A1c Calculated Osmolality Lactic Acid Lactic Acid (Sepsis) Calcium Total Bilirubin AST ALT Alkaline Phosphatase Troponin T Baseline 23 H Troponin T 120 Minute 27.92 H Delta Troponin T 4.92 Troponin T Hi Sens 6Hr Troponin T Hi Sens 6Hr Delta Total Protein Albumin Globulin Lipase Urine Color Yellow Urine Appearance Hazy A Urine pH 7 Ur Specific [place] 1.020 Urine Protein Neg Urine Glucose (UA) 1+ Urine Ketones 1+ H Urine Blood Neg Urine Nitrate Negative Urine Bilirubin Neg Urine Urobilinogen Norm Ur Leukocyte Esterase Negative Urine RBC None Urine WBC None Ur Squamous Epith Cells 0-4 H Amorphous Sediment Not Reportable Urine Bacteria Trace 12/03/20 12/03/20 12/04/20 19:00 22:01 04:17 WBC 10.0 RBC 4.77 Hgb 14.5 Hct 44.4 MCV 93.1 MCH 30.4 MCHC 32.7 RDW 13.2 Plt Count 205 MPV 9.8 Neut % (Auto) 85.5 Lymph % (Auto) 6.9 [place] % (Auto) 7.2 Eos % (Auto) 0.0 Baso % (Auto) 0.1 Neut # (Auto) 8.58 H Lymph # (Auto) 0.7 L [place] # (Auto) 0.7 Eos # (Auto) 0.0 Baso # (Auto) 0.0 Nucleated RBC % (auto) 0 Nucleated RBCs # 0.0 PT INR Sodium Potassium Chloride Carbon Dioxide Anion Gap BUN Creatinine GFR Calculation Glucose Estimat Average Glucose Hemoglobin A1c Calculated Osmolality Lactic Acid Lactic Acid (Sepsis) 1.8 Calcium Total Bilirubin AST ALT Alkaline Phosphatase Troponin T Baseline Troponin T 120 Minute Delta Troponin T Troponin T Hi Sens 6Hr 23.38 H Troponin T Hi Sens 6Hr Delta 0.38 Total Protein Albumin Globulin Lipase Urine Color Urine Appearance Urine pH Ur Specific [place] Urine Protein Urine Glucose (UA) Urine Ketones Urine Blood Urine Nitrate Urine Bilirubin Urine Urobilinogen Ur Leukocyte Esterase Urine RBC Urine WBC Ur Squamous Epith Cells Amorphous Sediment Urine Bacteria 12/04/20 12/04/20 12/04/20 04:17 04:17 04:17 WBC RBC Hgb Hct MCV MCH MCHC RDW Plt Count MPV Neut % (Auto) Lymph % (Auto) [place] % (Auto) Eos % (Auto) Baso % (Auto) Neut # (Auto) Lymph # (Auto) [place] # (Auto) Eos # (Auto) Baso # (Auto) Nucleated RBC % (auto) Nucleated RBCs # PT 14.90 INR 1.14 Sodium 140 Potassium 3.7 Chloride 105 Carbon Dioxide 28 Anion Gap 10.7 BUN 18 Creatinine 1.1 GFR Calculation 67.2 L Glucose 124 H Estimat Average Glucose 117 Hemoglobin A1c 5.7 Calculated Osmolality 293 Lactic Acid Lactic Acid (Sepsis) Calcium 8.6 Total Bilirubin 0.3 AST 14 ALT 13 Alkaline Phosphatase 77 Troponin T Baseline Troponin T 120 Minute Delta Troponin T Troponin T Hi Sens 6Hr Troponin T Hi Sens 6Hr Delta Total Protein 6.6 Albumin 3.7 Globulin 2.9 Lipase Urine Color Urine Appearance Urine pH Ur Specific [place] Urine Protein Urine Glucose (UA) Urine Ketones Urine Blood Urine Nitrate Urine Bilirubin Urine Urobilinogen Ur Leukocyte Esterase Urine RBC Urine WBC Ur Squamous Epith Cells Amorphous Sediment Urine Bacteria 12/04/20 12/05/20 12/05/20 17:05 05:21 05:21 WBC 4.9 RBC 4.75 Hgb 14.3 14.5 Hct 44.8 MCV 94.3 H MCH 30.5 MCHC 32.4 RDW 13.0 Plt Count 178 MPV 9.6 Neut % (Auto) 71.3 Lymph % (Auto) 15.7 [place] % (Auto) 11.8 Eos % (Auto) 0.6 Baso % (Auto) 0.6 Neut # (Auto) 3.49 Lymph # (Auto) 0.8 [place] # (Auto) 0.6 Eos # (Auto) 0.0 Baso # (Auto) 0.0 Nucleated RBC % (auto) 0 Nucleated RBCs # 0.0 PT INR Sodium 139 Potassium 3.8 Chloride 106 Carbon Dioxide 26 Anion Gap 10.8 BUN 17 Creatinine 1.1 GFR Calculation 67.2 L Glucose 105 Estimat Average Glucose Hemoglobin A1c Calculated Osmolality 290 Lactic Acid Lactic Acid (Sepsis) Calcium 7.9 L Total Bilirubin 0.2 AST 17 ALT 13 Alkaline Phosphatase 76 Troponin T Baseline Troponin T 120 Minute Delta Troponin T Troponin T Hi Sens 6Hr Troponin T Hi Sens 6Hr Delta Total Protein 6.1 L Albumin 3.3 L Globulin 2.8 Lipase Urine Color Urine Appearance Urine pH Ur Specific [place] Urine Protein Urine Glucose (UA) Urine Ketones Urine Blood Urine Nitrate Urine Bilirubin Urine Urobilinogen Ur Leukocyte Esterase Urine RBC Urine WBC Ur Squamous Epith Cells Amorphous Sediment Urine Bacteria Micro: Microbiology 12/03/20 19:00 Blood Culture - Preliminary Blood NEGATIVE TO DATE 12/03/20 15:58 Blood Culture - Preliminary Blood NEGATIVE TO DATE Cardiac Studies: No Data to Display
[2020-12-05] MEDS: sodium chloride 0.9% 1,000 ML 30 ML IV (07:45)
--- NOTE | 2020-12-05 08:30 | P.PN_ITS ---
Subjective Subjective: Interval history: No issues overnight patient denies any significant abdominal pain Vitals/I&O/Wt Last Vital Signs Temp 98.6 F 12/05/20 07:33 Pulse 97 12/05/20 07:33 Resp 18 12/05/20 07:33 BP 152/93 12/05/20 07:33 Pulse Ox 95 12/05/20 07:33 12/04/20 12/05/20 12/05/20 22:59 06:59 14:59 Intake Total 1305.083 / 2915.083 1410.0 / 2915.083 Output Total 550 / 1600 850 / 1600 Balance 755.083 / 1315.083 560.0 / 1315.083 Weight last 48 hrs Weight 185 lb 14.4 oz Weight 179 lb 6.4 oz Weight 175 lb Physical Exam Narrative: EXAM NARRATIVE: Abdomen: Soft, nontender, nondistended Data : 12/05/20 05:21 12/05/20 05:21 Micro: Microbiology 12/03/20 19:00 Blood Culture - Preliminary Blood NEGATIVE TO DATE 12/03/20 15:58 Blood Culture - Preliminary Blood NEGATIVE TO DATE A&P Assessment and plan (1) Coffee ground emesis: 65-year-old male with abdominal pain, coffee-ground emesis and diarrhea. He continues to have coffee-ground emesis but is otherwise hemodynamically stable Continue Protonix Plan for EGD under MAC today Status: Acute (2) Recurrent right inguinal hernia: 65-year-old male with asymptomatic recurrent right inguinal hernia with CT scan showing incarcerated fat. At this point he is asymptomatic. 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
--- NOTE | 2020-12-05 12:00 | ANE.PACU2 ---
Inpatient post-anesthesia follow up: Airway intact: Yes Vital signs: Temperature 98.7 F Pulse Rate [Apical ] 138 Pulse Rate 85 Respiratory Rate 18 Blood Pressure [Le ft Arm] 162/93 Blood Pressure 146/82 Pulse Oximetry 96 Oxygen Delivery Me thod [ Room Air Current Rate & Del keara] Oxygen Delivery Me thod Room Air Oxygen Flow Rate Fraction of Inspir ed Oxygen Hydration adequate: Yes Nausea and vomiting: No Pain level: 1 Mental status: Baseline
--- NOTE | 2020-12-05 12:03 | XRR_ITS ---
PROCEDURE INFORMATION: Exam: XR Chest Exam date and time: 12/05/2020 12:12 PM Age: 65 years old Clinical indication: Cough TECHNIQUE: Imaging protocol: XR of the chest. Views: 1 view. COMPARISON: CR XR chest 1V portable [id number] 12/03/2020 1:58 PM FINDINGS: Lungs: Unremarkable. No consolidation. Pleural spaces: Unremarkable. No pleural effusion. No pneumothorax. Heart/Mediastinum: Cardiomegaly. Bones/joints: Unremarkable. XR/XR chest 1V portable [id number] IMPRESSION: Cardiomegaly, negative for infiltrate
[2020-12-05] MEDS: cetylpyridinium Lozenge 1 EACH MUCOUS MEM (13:58)
--- NOTE | 2020-12-05 16:26 | P.DS_ITS ---
Discharge Providers Date of Admission: 12/03/20 19:22 Date of Discharge: December 05, 2020 Attending Provider at Admission: Ayah Sevilla MD Attending Provider at Discharge: Matt Givens Diagnoses at Discharge Discharge Diagnosis (1) Coffee ground emesis: Status: Acute (2) Recurrent right inguinal hernia: Status: Acute (3) Enteritis: Status: Acute (4) Sinus tachycardia: Status: Acute (5) Sepsis: Status: Acute Qualifiers: Sepsis type: sepsis due to unspecified organism Sepsis acute organ dysfunction status: without acute organ dysfunction Qualified Code(s): A41.9 - Sepsis, unspecified organism (6) Hypertension: Status: Acute Qualifiers: Hypertension type: essential hypertension Qualified Code(s): I10 - Essential (primary) hypertension Reason for Visit Reason for Visit: HIGH HEARTRATE Hospital Course Hospital Course Very pleasant 65-year-old gentleman with history of HTN came to ER due to multiple episodes of vomiting, with some relief from [place], with total about 10-15 episodes, also with black-brown coffee-ground appearing contents. Reported some history of ulcers in the past. He is a never smoker. Additionally reported 4-5 episodes of diarrhea. History of colonoscopy 4-5 years ago. Reported was tested for COVID-19 on 11/23 and was negative. Met sepsis criteria on presentation. With tachycardia, leukocytosis, low-grade fever noted in the hospital. Chest x-ray showing atherosclerosis. UA not suggestive of UTI. Question of mild enteritis noted on CT abdomen pelvis without bowel obstruction, with large right inguinal hernia containing fat, with other chronic findings. He was empirically treated with antibiotics with ceftriaxone, Flagyl. Stool studies were requested, although diarrhea has improved. C. difficile negative. Enteric bacterial panel negative. Hemoglobin was monitored, and initially with some decline in hemoglobin, WBC count and platelets, likely secondary to rehydration, subsequently remained stable at 14.5. He was treated with PPI IV drip. As he had additional occurrence of coffee-ground emesis in the hospital on 12/04 was assessed by surgery and underwent EGD this morning which was unremarkable. Subsequently no additional episodes of coffee-ground emesis. He is feeling better. No abdominal pain. He is tolerating full liquid diet. Okay for discharge from surgery perspective with PPI. Sepsis otherwise resolved with resolution of leukocytosis, resolution of sinus tachycardia. He will complete antibiotic course with Levaquin and Flagyl. Blood cultures so far without growth, although final cultures pending. He is asked to follow-up with surgery in office regarding her recurrent right inguinal hernia. With regards to history of hypertension, blood pressures initially elevated with systolic in 170s, however, here subsequently closer to goal. Currently 146/82. He is asked to follow blood pressures at home. Please revisit with him and help him optimize control depending on the values. Physical Exam Const: COMMON NORMALS: no acute distress, patient oriented x3 and alert ORIENTATION/CONSCIOUSNESS: Yes awake HENMT: COMMON NORMALS: oropharynx normal Neck/C-Spine: COMMON NORMALS: no JVD Resp: COMMON NORMALS: normal respiratory effort and clear to auscultation bilaterally AUSCULTATION: clear to auscultation bilaterally Cardio: COMMON NORMALS: no JVD, regular rhythm, S1 normal heart sound present, S2 normal heart sound present and No murmurs present (Cardio) RHYTHM: regular rhythm HEART SOUNDS: S1 normal heart sound present and S2 normal heart sound present GI: COMMON NORMALS: Normal to inspection, nondistended, normoactive bowel sounds present, Soft to palpation and non-tender PALPATION: Yes Soft to palpation Extremity: COMMON NORMALS: no joint enlargement and no pedal edema Neuro: COMMON NORMALS: patient oriented x3 and moves all extremities SENSORIUM/ORIENTATION: Yes alert Skin: COMMON NORMALS: no rashes or lesions noted GENERAL SKIN EXAM: no rashes or lesions noted Discharge Data Data Completed and Pending: Completed Studies During Hospitalization Category Date Time Status CT abdomen pelvis w con* [id number] Urge nt Cat Scan 12/03/20 17:25 Completed XR chest 1V sherri ble [id number] Routine Exams 12/05/20 12:03 Completed XR chest 1V sherri ble [id number] Urgent Exams 12/03/20 13:27 Completed Pending at discharge Category Date Time Status Blood Culture Sta t Lab 12/03/20 19:00 Results Complete Blood Co unt w/Auto AM LABS Lab 12/06/20 04:00 Ordered Comprehensive Met abolic Panel AM LA BS Lab 12/06/20 04:00 Ordered Labs from last 24 hours 12/05/20 12/05/20 12/04/20 05:21 05:21 17:05 WBC 4.9 RBC 4.75 Hgb 14.5 14.3 Hct 44.8 MCV 94.3 H MCH 30.5 MCHC 32.4 RDW 13.0 Plt Count 178 MPV 9.6 Neut % (Auto) 71.3 Lymph % (Auto) 15.7 [place] % (Auto) 11.8 Eos % (Auto) 0.6 Baso % (Auto) 0.6 Neut # (Auto) 3.49 Lymph # (Auto) 0.8 [place] # (Auto) 0.6 Eos # (Auto) 0.0 Baso # (Auto) 0.0 Nucleated RBC % (a uto) 0 Nucleated RBCs # 0.0 Sodium 139 Potassium 3.8 Chloride 106 Carbon Dioxide 26 Anion Gap 10.8 BUN 17 Creatinine 1.1 GFR Calculation 67.2 L Glucose 105 Calculated Osmolal ity 290 Calcium 7.9 L Total Bilirubin 0.2 AST 17 ALT 13 Alkaline Phosphata se 76 Total Protein 6.1 L Albumin 3.3 L Globulin 2.8 Vitals: Last Vital Signs Temp 98.7 F 12/05/20 16:23 Pulse 85 12/05/20 16:23 Resp 18 12/05/20 16:23 BP 146/82 12/05/20 16:23 Pulse Ox 96 12/05/20 16:23 Discharge Plan Discharge Patient Disposition: Home Condition: Stable Prescriptions: New pantoprazole 40 mg tablet,delayed release (DR/EC) 40 mg PO DAILY 42 Days Qty: 84 RF: 0 Flagyl 500 mg tablet 500 mg PO Q8H 7 Days Qty: 21 RF: 0 levofloxacin 750 mg tablet 750 mg PO DAILY 7 Days Qty: 7 RF: 0 Continued One-A-Day Men's Complete 240 mcg-30 mcg- 300 mcg Tablet 1 tab PO DAILY RF: 0 Vitamin C 1 tab PO DAILY RF: 0 potassium 1 tab PO DAILY RF: 0 vitamin E 1 tab PO DAILY RF: 0 Benadryl Allergy 25 mg Tablet 25 mg PO Q6H PRN (Reason: Allergy Symptoms) RF: 0 Prostate Therapy Capsule 1 cap PO DAILY RF: 0 Discharge Orders: Discharge Order (Routine); Ordered 12/05/20 Ordered By: Matt Givens Referrals: Nishant Nunez MD [Physician] - 1 week (Please contact Dr. Nunez's office on Monday morning to make an appointment within 1 week. ) Vy Rawls FNP [Nurse Practitioner] - 4-7 days Discharge Diet: Advance as tolerated and Full LIquid Discharge Activity: Increase activity as tolerated Patient Instructions: Metronidazole (By mouth), Levofloxacin (By mouth), Pantoprazole (By mouth), Gastrointestinal Bleeding (GEN), Chronic Hypertension (GEN), GI Discharge Instructions, Opioid Safety Activity Restrictions/Additional Instructions: Please complete antibiotic course for enteritis and possible bronchitis. In case you experience high fever, worsening nausea/vomiting, diarrhea, abdominal pain, any worsening of cough, progressive shortness of breath, any chest pain or other concerning symptoms, please seek medical attention without delay. Please follow-up with your primary care doctor to ensure resolution of enteritis. Please follow-up with surgery in office regarding recurrent right inguinal hernia. Please measure your blood pressure at home 3 times daily, record values to bring to the appointment with your doctor. Initially her blood pressure was elevated in the hospital, but here currently it is closer to goal. For now you are not started on any medications for treatment, but please discuss with your primary doctor whether this may be beneficial based on your blood pressures at home. Discharge Attestations Time Spent in Discharge Care*: greater than 30 min Quality Metrics Clinical Quality Measures During this hospital stay, did patient experience: None Coding Level of Care Code Acute Chg FW DC note Diagnoses Coffee ground emesis K92.0 Recurrent right inguinal hernia K40.91 Enteritis K52.9 Sinus tachycardia R00.0 Sepsis A41.9 Sepsis type: sepsis due to unspecified organism Sepsis acute organ dysfunction status: without acute organ dysfunction Hypertension I10 Hypertension type: essential hypertension
--- NOTE | 2020-12-10 15:37 | PC.SOCIAL ---
called of patient and indicates Flagyl is making patient sick and asked for alternative. He only took 5 doses (1.5 days) of this medication and has been discharged for 6. All Cultures are negative including C Diff. Patient is feeling better with no reports of diarrhea or n/v. Discussed with Dr Lissy Pickett medical staff credentialing coordinator since Dr Givens is not working at this time and after review Dr Pickett indicates okay to not replace Flagyl but to continue with Levaquin as long as asymptomatic as documented above. Should patient becom syptomatic will need to follow up with PCP. Patient has seen PCP and has blood work scheduled in two weeks.
== END 2020-12-05 15:55 | disposition home or self-care (01) | DRG 872 ==
LOC: ER 15:33 → MEDSURG 19:52
PROVIDERS: Physician Assistant; Surgery; Admitting Provider Student in an Organized Health Care Education/Training Program; Emergency Provider Family Medicine; Visit Provider Internal Medicine
PROC: 0DJ08ZZ Inspection of Upper Intestinal Tract, Via Natural or Artificial Opening Endoscopic (ICD-10-PCS; CPT 43235; principal; 2020-12-05 08:00)
DX: A41.9 Sepsis, unspecified organism (principal); K92.0 Hematemesis; I10 Essential (primary) hypertension; K52.9 Noninfective gastroenteritis and colitis, unspecified; K40.91 Unilateral inguinal hernia, without obstruction or gangrene, recurrent; K44.9 Diaphragmatic hernia without obstruction or gangrene; Z87.11 Personal history of peptic ulcer disease
CPT/HCPCS: 36415; 43235; 71045; 74177; 80053; 81001; 83036; 83605; 83690; 84484; 85018; 85025; 85610; 87040; 87493; 87506; 93005; 96361; 96374; 96375; 99285; C9113; J0696; J2405; J3490; J7030; Q9967; S0030

== ENCOUNTER 2021-07-20 10:32 | Outpatient (CLI) | payer MEDICARE, SELFPAY ==
--- NOTE | 2021-07-20 10:44 | CT_ITS ---
WS: [id number] INDICATION: Thoracic aortic aneurysm TECHNIQUE: Noncontrast and contrast-enhanced CT of the chest. Coronal and sagittal reformatted images . FINDINGS: Both lungs are well aerated. No acute pulmonary infiltrates. No focal pneumonia or pleural fluid. A few tiny calcified granulomas. Normal caliber ascending thoracic aorta. Aneurysmal aortic arch and proximal descending thoracic aort a measuring 3.2 x 2.8 cm AP by transverse. Normal caliber mid and descending thoracic aorta. Adrenal glands are normal. Mild diffuse fatty infiltration the liver. Fatty atrophy of the pancreas. No evidence of intramural hematoma on the noncontrast images. No mediastinal or hilar lymphadenopathy. No axillary lymphadenopathy. Mild spondylitic changes thorac ic spine. CT/CT chest wo/w con [id number] IMPRESSION: 1. No evidence of aortic dissection or intramural hematoma. 2. Aneurysmal distal aortic arch and proximal descending thoracic aorta measur ing 3.2 x 2.8 cm AP by transverse. 3. Normal caliber abdominal aorta. 4. Both lungs are well aerated. 5. No mediastinal or hilar lymphadenopathy.
[2021-07-20 11:26] LABS: Blood Urea Nitrogen 17 mg/dL (8-23); Glomerular Filtration Rate 74.8 mL/min (90-130)
[2021-07-20] MEDS: iohexol 300 mg/mL 100 mL Btl IV (12:01)
== END 2021-07-20 10:33 | disposition home or self-care (01) ==
LOC: RAD 10:37
PROVIDERS: Visit Provider Physician Assistant
DX: I71.2 Thoracic aortic aneurysm, without rupture (principal)
CPT/HCPCS: 36415; 71270; 82565; 84520

== ENCOUNTER 2021-08-23 16:32 | Emergency (ER) | payer MEDICARE, SELFPAY ==
[2021-08-23 18:36] VITALS: BP 161/94; PULSE 95; RESP 18; TEMP 36.6; O2SAT 97; BMI 28.0
--- NOTE | 2021-08-23 19:30 | XRR_ITS ---
PROCEDURE INFORMATION: Exam: XR Chest Exam date and time: 08/23/2021 7:30 PM Age: 66 years old Clinical indication: Other: Dizzy; Patient HX: High b/p TECHNIQUE: Imaging protocol: XR of the chest. Views: 1 view. COMPARISON: CT chest wo/w con [id number] 07/20/2021 11:58 AM FINDINGS: Lungs: Unremarkable. No consolidation. Pleural spaces: Unremarkable. No pleural effusion. No pneumothorax. Heart/Mediastinum: Unremarkable. No cardiomegaly. Bones/joints: Unremarkable. XR/XR chest 1V portable [id number] IMPRESSION: Unremarkable
--- NOTE | 2021-08-23 19:30 | ECG_ITS ---
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 Measurements Intervals [place] Rate: 85 P: 72 UT: 152 QRS: 68 QRSD: 102 T: 73 QT: 341 QTc: 407 Interpretive Statements SINUS RHYTHM Compared to ECG 12/03/2020 20:57:08 Sinus tachycardia no longer present T-wave abnormality no longer present Electronically Signed On 08-24-2021 17:10:47 FREELANCE GRAPHIC DESIGNER by Phylicia Chisholm M.D. [email or web address]
[2021-08-23 21:47] LABS: Basophils % 0.2 %; Eosinophils % 0.4 %; Hematocrit 48.5 % (42.0-52.0); Hemoglobin 16.2 g/dL (11.7-16.6); Lymphocytes # 1.1 10^3/uL (0.8-4.8); Mean Corpuscular HGB Conc 33.4 g/dL (30.0-36.0); Mean Corpuscular Hemoglobin 30.2 pg (28.0-34.0); Mean Corpuscular Volume 90.3 fl (80-94); Mean Platelet Volume 9.3 fL (7.4-10.4); Monocytes # 0.6 10^3/uL (0.2-0.9); Monocytes % 10.2 %; Neutrophils # 3.94 10^3/uL (1.8-7.7); Neutrophils % 69.2 %; Nucleated Red Blood Cells % 0 %; Platelet Count 211 10^3/cmm (130-400); Red Blood Count 5.37 10^6/uL (4.1-5.3); Red Cell Distribution Width 12.6 % (12.1-15.1); White Blood Count 5.7 10^3/uL (4.0-10.0)
[2021-08-23 22:07] LABS: Alanine Aminotransferase 19 U/L (0-41); Albumin Level 4.7 g/dL (3.5-5.2); Alkaline Phosphatase 112 IU/L (40-130); Anion Gap 13.9 (5-19); Aspartate Amino Transferase 22 U/L (0-40); Blood Urea Nitrogen 13 mg/dL (8-23); Calcium 9.1 mg/dL (8.5-10.5); Carbon Dioxide 26 mmol/L (22-29); Chloride 101 mmol/L (98-107); Creatinine Clr Calc Pharmacy 69.6736; Globulin 2.8 g/dL (1.3-4.6); Glucose 93 mg/dL (65-115); Osmolality Calculated 284 mOsm/kg (285-295); Potassium 3.9 mmol/L (3.5-5.1); Sodium 137 mmol/L (136-145); Total Bilirubin 0.4 mg/dL (0.15-1.2); Total Protein 7.5 g/dL (6.6-8.7); Troponin(5th) Baseline 17 ng/L (0-15)
--- NOTE | 2021-08-23 22:58 | W.ED.DIZZY ---
HPI - Dizziness General: Chief Complaint: Dizziness Stated Complaint: High B/P @ home Time Seen by Provider: 08/23/21 22:52 History of Present Illness: HPI Narrative: Patient is a 66-year-old male who comes to the ED with dizziness. Says his symptoms started this morning when he woke up. He got out of bed and started feeling real dizzy and then laid back down onto the bed. Dizziness is described as a room spinning. Denies any head injury or loss of consciousness. The dizziness resolved and he was able to do a lot of his daily activities. He then had some episode of dizziness during the day as well. He says the dizziness seems to mostly occur when he is changing positions or goes from laying to standing or sometimes with change in head position as well. Denies any chest pain or shortness of breath. Associated symptoms: Denies chest pain, chills, headache(s), nausea, nasal congestion, palpitations or vomiting Associated neuro symptoms: Deny numbness in extremities Review of Systems Const: Denies: fever(s), chills or fatigue Eyes: Denies: change in vision or eye discomfort ENMT: Denies: throat pain, odynophagia, nasal discharge or nasal congestion Card: Denies: chest pain, palpitations, edema, swelling of feet/ankles, dyspnea on exertion or orthopnea Resp: Denies: dyspnea, productive cough or non-productive cough GI: Denies: abdominal pain, nausea, vomiting, diarrhea, constipation or hematochezia : Denies: flank pain, difficulty urinating, dysuria or hematuria Musc: Denies: neck pain, back pain or extremity swelling Skin/Breast: Denies: rash or new lesions Neuro: Reports: dizziness; Denies: headache(s), numbness in extremities or weakness in extremities [facility] PFSH: Medical History Coffee ground emesis Hypertension Recurrent right inguinal hernia Surgical History Status post colonoscopy Status post right inguinal hernia repair Social History Smoking and tobacco status: never smoked Alcohol intake: former Physical Exam Const: COMMON NORMALS: no acute distress, patient oriented x3, healthy appearing and alert GENERAL APPEARANCE: cooperative and comfortable HENMT: COMMON NORMALS: normocephalic HEAD & SCALP: normocephalic MOUTH: Normal oral and palatal mucosa present THROAT: posterior oropharynx normal and uvula midline Neck/C-Spine: COMMON NORMALS: supple GENERAL: Yes normal visual inspection Resp: COMMON NORMALS: normal respiratory effort, No retractions, No use of accessory muscles and clear to auscultation bilaterally AUSCULTATION: clear to auscultation bilaterally Cardio: COMMON NORMALS: regular rate, regular rhythm, S1 normal heart sound present, S2 normal heart sound present, No gallops present (Cardio), No clicks present (Cardio), No murmurs present (Cardio) and Peripheral pulses 2+ throughout RATE: regular rate RHYTHM: regular rhythm HEART SOUNDS: S1 normal heart sound present and S2 normal heart sound present PERIPHERAL PULSES: Peripheral pulses 2+ throughout GI: COMMON NORMALS: Normal to inspection, nondistended, normoactive bowel sounds present, Soft to palpation, non-tender and no masses PALPATION: Yes Soft to palpation : COMMON NORMALS: Yes no CVA tenderness BLADDER/KIDNEY EXAM: Yes no CVA tenderness Back/Pelvis: COMMON NORMALS: no CVA tenderness Extremity: COMMON NORMALS: normal to inspection and no pedal edema Neuro: COMMON NORMALS: patient oriented x3, CN's II-XII intact bilaterally, moves all extremities, no focal motor deficits and no sensory deficits noted SENSORIUM/ORIENTATION: Yes alert GAIT: Yes Normal gait present MOTOR EXAM: 5/5 motor strength present throughout and Pronator motor function not present Skin: GENERAL SKIN EXAM: dry skin Course Vital Signs: Vital signs: Vital Signs Temperature 97.9 F 08/23/21 18:36 Pulse Rate 87 08/24/21 01:21 Respiratory Rate 18 08/24/21 01:21 Blood Pressure 157/84 08/24/21 01:21 Pulse Oximetry 97 08/24/21 01:21 [facility] - Dizziness Medical Decision Making Patient is a 66-year-old male comes to the ED with dizziness. Patient says he woke up this morning and got out of bed and felt dizzy. He describes the dizziness as the room spinning. Says symptoms worsen with certain movements of his head or if he gets up from a laying to sitting or standing position. Denies any chest pain or shortness of breath. Vitals are stable. Physical exam including neuro exam is benign. Labs are unremarkable. Troponin negative and EKG showed no acute ST segment elevation or depression seen. Chest x-ray was unremarkable. Head CT showed no acute intracranial finding. Patient was given meclizine to help with dizziness and also his nightly dose of losartan for hypertension. Patient diagnosed with benign paroxysmal positional vertigo and discharged home with a prescription for meclizine and he was given benign paroxysmal positional vertigo exercises he can do to help improve symptoms. Is told to follow-up with his PCP in the next 3 to 5 days for reevaluation. Return to ED precautions given. Patient understood and agreed with plan. Lab Data I reviewed the patient's lab results. : 08/23/21 21:35 08/23/21 21:35 Radiology Impressions Chest X-Ray 08/23/21 19:30 IMPRESSION: Unremarkable Head CT 08/23/21 23:09 IMPRESSION: No acute intracranial findings. Laboratory Results WBC 5.7 10^3/uL (4.0-10.0) 08/23/21 21:35 RBC 5.37 10^6/uL (4.1-5.3) H 08/23/21 21:35 Hgb 16.2 g/dL (11.7-16.6) 08/23/21 21:35 Hct 48.5 % (42.0-52.0) 08/23/21 21:35 MCV 90.3 fl (80-94) 08/23/21 21:35 MCH 30.2 pg (28.0-34.0) 08/23/21 21:35 MCHC 33.4 g/dL (30.0-36.0) 08/23/21 21:35 RDW 12.6 % (12.1-15.1) 08/23/21 21:35 Plt Count 211 10^3/cmm (130-400) 08/23/21 21:35 MPV 9.3 fL (7.4-10.4) 08/23/21 21:35 Neut % (Auto) 69.2 % 08/23/21 21:35 Lymph % (Auto) 20.0 % 08/23/21 21:35 [place] % (Auto) 10.2 % 08/23/21 21:35 Eos % (Auto) 0.4 % 08/23/21 21:35 Baso % (Auto) 0.2 % 08/23/21 21:35 Neut # (Auto) 3.94 10^3/uL (1.8-7.7) 08/23/21 21:35 Lymph # (Auto) 1.1 10^3/uL (0.8-4.8) 08/23/21 21:35 [place] # (Auto) 0.6 10^3/uL (0.2-0.9) 08/23/21 21:35 Eos # (Auto) 0.0 10^3/uL (0.0-0.8) 08/23/21 21:35 Baso # (Auto) 0.0 10^3/uL (0.0-0.1) 08/23/21 21:35 Nucleated RBC % (auto) 0 % 08/23/21 21:35 Nucleated RBCs # 0.0 /100WBC 08/23/21 21:35 Sodium 137 mmol/L (136-145) 08/23/21 21:35 Potassium 3.9 mmol/L (3.5-5.1) 08/23/21 21:35 Chloride 101 mmol/L (98-107) 08/23/21 21:35 Carbon Dioxide 26 mmol/L (22-29) 08/23/21 21:35 Anion Gap 13.9 (5-19) 08/23/21 21:35 BUN 13 mg/dL (8-23) 08/23/21 21:35 Creatinine 1.1 mg/dL (0.7-1.2) 08/23/21 21:35 GFR Calculation 67.0 mL/min (90-130) L 08/23/21 21:35 Glucose 93 mg/dL (65-115) 08/23/21 21:35 Calculated Osmolality 284 mOsm/kg (285-295) L 08/23/21 21:35 Calcium 9.1 mg/dL (8.5-10.5) 08/23/21 21:35 Total Bilirubin 0.4 mg/dL (0.15-1.2) 08/23/21 21:35 AST 22 U/L (0-40) 08/23/21 21:35 ALT 19 U/L (0-41) 08/23/21 21:35 Alkaline Phosphatase 112 IU/L (40-130) 08/23/21 21:35 Troponin T Baseline 17 ng/L (0-15) H 08/23/21 21:35 Troponin T 120 Minute 22.70 ng/L (0-15) H 08/23/21 23:32 Delta Troponin T 5.70 ABS# (0-10) 08/23/21 23:32 Total Protein 7.5 g/dL (6.6-8.7) 08/23/21 21:35 Albumin 4.7 g/dL (3.5-5.2) 08/23/21 21:35 Globulin 2.8 g/dL (1.3-4.6) 08/23/21 21:35 EKG Data EKG 1: EKG interpretation date: 08/23/21 Interpretation: Sinus rhythm, no ST segment elevation or depression seen. 85 bpm. Discharge Plan Discharge Patient Disposition: Home Clinical Impression: Benign paroxysmal positional vertigo Condition: Stable Prescriptions: New meclizine 25 mg tablet 25 mg PO BID PRN (Reason: dizziness) Qty: 20 0RF No Action One-A-Day Men's Complete 240 mcg-30 mcg- 300 mcg Tablet 1 tab PO DAILY 0RF Vitamin C 1 tab PO DAILY 0RF potassium 1 tab PO DAILY 0RF vitamin E 1 tab PO DAILY 0RF Benadryl Allergy 25 mg Tablet 25 mg PO Q6H PRN (Reason: Allergy Symptoms) 0RF Prostate Therapy Capsule 1 cap PO DAILY 0RF Discharge Orders: Discharge ED (Routine); Ordered 08/24/21 Ordered By: Heri Hauser Discharge Diet: Regular Discharge Activity: Increase activity as tolerated Patient Instructions: Vertigo (DC), Benign Paroxysmal Positional Vertigo (ED) Activity Restrictions/Additional Instructions: Follow-up with medical provider as directed and 3 to 5 days for reevaluation. Take medications as prescribed. Do the BPPV exercises daily to help with symptoms. Return to the ER or your medical provider if condition worsens. Please read and understand discharge instructions. Thank you for choosing [facility] for your healthcare needs today. Please realize this is an emergency room and that we are providing you with a medical screening exam and this may not be complete and all inclusive of all the testing and or work up that you may need to determine your ailment or severity of your illness. It is very important that you follow up as instructed or that you return to the Emergency Department should you have concerns or if your condition changes or worsens in any way. Coding Level of Care Code ED Advance Seal Delivery System Maintainer for Chg Fwd Exam Comprehensive
--- NOTE | 2021-08-23 23:09 | CTR_ITS ---
PROCEDURE INFORMATION: Exam: CT Head Without Contrast Exam date and time: 08/23/2021 11:09 PM Age: 66 years old Clinical indication: Dizziness TECHNIQUE: Imaging protocol: Computed tomography of the head without contrast. Radiation optimization: All CT scans at this facility use at least one of these dose optimization techniques: automated exposure control; mA and/or kV adjustment per patient size (includes targeted exams where dose is matched to clinical indication); or iterative reconstruction. COMPARISON: No relevant prior studies available. RADIATION DOSE METRICS: Total DLP (mGy-cm): 832.91 FINDINGS: Brain: No CT evidence for acute ischemia, mass or hemorrhage. Small chronic lacunar infarct in the left basal ganglia. Mild sulcal widening is consistent with age. Cerebral ventricles: No ventriculomegaly. Paranasal sinuses: Visualized sinuses are unremarkable. No fluid levels. Mastoid air cells: Visualized mastoid air cells are well aerated. Bones/joints: Unremarkable. No acute fracture. Soft tissues: Unremarkable. CT/CT head wo con* [id number] IMPRESSION: No acute intracranial findings.
[2021-08-23 23:15] VITALS: BP 177/102
[2021-08-23] MEDS: losartan 50 mg Tablet PO (23:15)
[2021-08-23 23:20] VITALS: BP 177/102; PULSE 89; RESP 18; O2SAT 97
[2021-08-24 01:02] VITALS: BP 149/99; BP 151/97; BP 152/98; PULSE 89; PULSE 90; PULSE 91
[2021-08-24 01:21] VITALS: BP 157/84; PULSE 87; RESP 18; O2SAT 97
== END 2021-08-24 01:23 | disposition home or self-care (01) ==
PROVIDERS: Emergency Medicine; Emergency Provider Physician Assistant
DX: H81.10 Benign paroxysmal vertigo, unspecified ear (principal); I10 Essential (primary) hypertension
CPT/HCPCS: 36415; 70450; 71045; 80053; 84484; 85025; 93005; 99284

== ENCOUNTER → 2022-04-21 14:01 | Outpatient (BNVA) | payer MEDICARE, SELFPAY | PROVIDERS: Visit Provider Surgery | DX: Z86.010 Personal history of colon polyps (principal) | CPT/HCPCS: 99203 ==

== ENCOUNTER → 2022-06-27 06:00 | Day surgery (SDC) | payer MEDICARE, SELFPAY ==
[2022-06-24 08:19] VITALS: BMI 26.6
== END ==
PROVIDERS: Visit Provider Surgery
DX: R91.8 Other nonspecific abnormal finding of lung field (principal)

== ENCOUNTER → 2022-12-06 14:50 | Outpatient (BNVA) | payer MEDICARE, SELFPAY | PROVIDERS: PCP Physician Assistant; Visit Provider Surgery | DX: Z86.010 Personal history of colon polyps (principal) | CPT/HCPCS: 99213 ==

== ENCOUNTER 2023-01-13 08:15 | Day surgery (SDC) | payer MEDICARE, SELFPAY ==
[2023-01-10 12:36] VITALS: BMI 27.3
[2023-01-13] MEDS: sodium chloride 0.9% 1,000 ML 30 ML IV (08:53)
[2023-01-13 08:55] VITALS: BP 142/85; PULSE 69; RESP 16; TEMP 36.2; O2SAT 97
--- NOTE | 2023-01-13 10:13 | P.ANESASSM_ITS ---
Pre-Anesthetic Assessment Height/Weight: Height 1.73 m Weight 81.647 kg Temp Pulse Resp BP Pulse Ox O2 Del Method 97.1 F L 69 16 142/85 97 Room Air 01/13/23 08:55 01/13/23 08:55 01/13/23 08:55 01/13/23 08:55 01/13/23 08:55 01/13/23 08:55 Preop Diagnosis: History of colon polyps Operation Date: 01/13/23 10:15 Proposed Procedures p Colonoscopy 01524,Z86.010(Not Applicable) - Steve Crowe DO Familial anesthetic complications: none Was Beta Kaylie taken within 24 hours: N/A Was Clonidine taken within 24 hours: N/A Last intake: Intake Last Liquid Date 01/12/23 Last Liquid Time 19:30 Last Solid Date 01/11/23 Last Solid Time 20:30 Social No alcohol and No tobacco Exam alert, oriented x 3, clear to auscultation bilaterally and regular rate & rhythm Airway Submandibular: within normal limits Cervical ROM: within normal limits Mallampati: Class I Dentition: other Pulmonary None reported CV/HEM Hypertension AAA at 3.2 no surgery is needed None reported Hepatic None reported GI Gastroesophageal Reflux Disease (controlled) Metabolic Hyperlipidemia [facility] Lower Back Pain Neuropsych None reported Anesthetic Plan ASA status: 2 Anesthesia: MAC Risk of > 500 ml blood loss (7ml/kg in children): No Medications/Allergies Home Medications Medication Instructions Recorded Confirmed Last Taken Type Vitamin C 1 tab PO DAILY 12/03/20 01/13/23 01/12/23 History diphenhydramine HCl 25 mg tablet 25 mg PO Q6H PRN Allergy Symptoms 12/03/20 01/13/23 01/12/23 History (Benadryl Allergy) multivit,calc,mins-folic 240 1 tab PO DAILY 12/03/20 01/13/23 01/12/23 History mcg-vit K1 30 mcg-lycopene 300 mcg tablet (One-A-Day Men's Complete) [id number] palm-min 17 1 cap PO DAILY 12/03/20 01/13/23 01/12/23 History capsule (Prostate Therapy capsule) vitamin E 1 tab PO DAILY 12/03/20 01/13/23 01/12/23 History atorvastatin 20 mg tablet 20 mg PO DAILY 06/24/22 01/13/2323 History losartan 50 mg tablet 50 mg PO BID 06/24/22 01/13/23 01/12/23 History pantoprazole 40 mg tablet,delayed 40 mg PO BID 06/24/22 01/13/23 01/12/23 History release Allergies Allergy/AdvReac Type Severity Reaction Status Date / Time acetaminophen [From Tylenol] Allergy Unknown Verified 01/13/23 08:50 STERIODS Allergy Unknown Uncoded 01/13/23 08:50 Current Medications Generic Name Dose Route Start Last Admin Trade Name Freq PRN Reason Stop Dose Admin Sodium Chloride 1,000 mls @ 30 mls/hr 01/13/23 08:30 01/13/23 08:53 Sodium Chloride 0.9% IV 01/14/23 08:29 30 mls/hr .Q24H YOSELYN Administration PFSH Anesthesia Medical History Coffee ground emesis History of colon polyps Hypertension Recurrent right inguinal hernia Surgical History Status post colonoscopy Status post right inguinal hernia repair Social History Smoking and tobacco status: never smoked Alcohol intake: former Data Anesthesia Cardiac Studies: No Data to Display
--- NOTE | 2023-01-13 10:31 | PM.HP ---
Providers/Chief Complaint Primary Care Provider: Nilda Coleman Chief Complaint: Z86.010 History of Present Illness Kemal Falk is a 67 year old male here for colonoscopy Medications/Allergies Home Medications Medication Instructions Recorded Confirmed Last Taken Type Vitamin C 1 tab PO DAILY 12/03/20 01/13/23 01/12/23 History diphenhydramine HCl 25 mg tablet 25 mg PO Q6H PRN Allergy Symptoms 12/03/20 01/13/23 01/12/23 History (Benadryl Allergy) multivit,calc,mins-folic 240 1 tab PO DAILY 12/03/20 01/13/23 01/12/23 History mcg-vit K1 30 mcg-lycopene 300 mcg tablet (One-A-Day Men's Complete) [id number] palm-min 17 1 cap PO DAILY 12/03/20 01/13/23 01/12/23 History capsule (Prostate Therapy capsule) vitamin E 1 tab PO DAILY 12/03/20 01/13/23 01/12/23 History atorvastatin 20 mg tablet 20 mg PO DAILY 06/24/22 01/13/23 01/12/23 History losartan 50 mg tablet 50 mg PO BID 06/24/22 01/13/23 01/12/23 History pantoprazole 40 mg tablet,delayed 40 mg PO BID 06/24/22 01/13/23 01/12/23 History release Allergies Allergy/AdvReac Type Severity Reaction Status Date / Time acetaminophen [From Tylenol] Allergy Unknown Verified 01/13/23 08:50 STERIODS Allergy Unknown Uncoded 01/13/23 08:50 PFSH Acute PFSH: Medical History Coffee ground emesis History of colon polyps Hypertension Recurrent right inguinal hernia Surgical History Status post colonoscopy Status post right inguinal hernia repair Social History Smoking and tobacco status: never smoked Alcohol intake: former Vitals/I&O/Wt Last Vital Signs Temp 97.1 F L 01/13/23 08:55 Pulse 69 01/13/23 08:55 Resp 16 01/13/23 08:55 BP 142/85 01/13/23 08:55 Pulse Ox 97 01/13/23 08:55 O2 Del Method Room Air 01/13/23 08:55 A&P Assessment and plan (1) History of colon polyps: Plan Screening colonoscopy Attestations Medical Necessity Statement*: Home Coding Level of Care Code Acute Code for Chg Fwd Diagnoses History of colon polyps Z86.010
[2023-01-13 10:46] VITALS: BP 127/83; PULSE 87; RESP 16; TEMP 36.1; O2SAT 95
[2023-01-13 11:09] VITALS: BP 133/76; PULSE 71; RESP 18; O2SAT 94
--- NOTE | 2023-01-13 12:39 | ANE.PACU2 ---
Inpatient post-anesthesia follow up: Airway intact: Yes Vital signs: Temperature 97 F Pulse Rate 71 Respiratory Rate 18 Blood Pressure 133/76 Pulse Oximetry 94 Oxygen Delivery Me thod Room Air Oxygen Flow Rate 4 Fraction of Inspir ed Oxygen Hydration adequate: Yes Nausea and vomiting: No Pain level: 2 Mental status: Baseline
== END 2023-01-13 11:25 | disposition home or self-care (01) ==
PROVIDERS: PCP Physician Assistant; Visit Provider Surgery
PROC: 0DJD8ZZ Inspection of Lower Intestinal Tract, Via Natural or Artificial Opening Endoscopic (ICD-10-PCS; CPT 45378; principal; 2023-01-13 10:15)
DX: Z12.11 Encounter for screening for malignant neoplasm of colon (principal); Z86.010 Personal history of colon polyps; I10 Essential (primary) hypertension; E78.5 Hyperlipidemia, unspecified; K21.9 Gastro-esophageal reflux disease without esophagitis
CPT/HCPCS: G0121; J2704; J7030

== ENCOUNTER → 2023-05-16 09:58 | Outpatient (BNVA) | payer MEDICARE, SELFPAY | PROVIDERS: PCP Physician Assistant; Visit Provider Nurse Practitioner Family | DX: L57.0 Actinic keratosis (principal); L82.0 Inflamed seborrheic keratosis; L82.1 Other seborrheic keratosis; D22.62 Melanocytic nevi of left upper limb, including shoulder; L91.8 Other hypertrophic disorders of the skin | CPT/HCPCS: 17000; 17110; 99213 ==

== ENCOUNTER → 2023-06-20 10:49 | Outpatient (BNVA) | payer MEDICARE, SELFPAY | PROVIDERS: PCP Physician Assistant; Visit Provider Podiatrist Foot & Ankle Surgery | DX: L60.8 Other nail disorders (principal); B35.1 Tinea unguium | CPT/HCPCS: 99203 ==

== ENCOUNTER → 2023-12-07 09:20 | Outpatient (BNVA) | payer MEDICARE, SELFPAY | PROVIDERS: PCP Physician Assistant; Visit Provider Nurse Practitioner Family | DX: L82.0 Inflamed seborrheic keratosis (principal); L82.1 Other seborrheic keratosis; D22.62 Melanocytic nevi of left upper limb, including shoulder; L91.8 Other hypertrophic disorders of the skin; L57.8 Other skin changes due to chronic exposure to nonionizing radiation | CPT/HCPCS: 17110; 99213 ==

== ENCOUNTER 2024-03-16 19:43 | Emergency (ER) | payer MEDICARE, SELFPAY ==
[2024-03-16 19:47] VITALS: BP 175/86; PULSE 84; RESP 16; TEMP 36.4; O2SAT 98
[2024-03-16] MEDS: ondansetron 2 mg/ML SDV 2 mL 8 MG IVP (20:08)
[2024-03-16 20:12] VITALS: BP 174/97; PULSE 83; RESP 19; O2SAT 94
[2024-03-16] MEDS: sodium chloride 0.9% 1,000 ML 999 ML IV (20:18)
[2024-03-16 20:20] LABS: Basophils % 0.2 %; Eosinophils % 0.1 %; Hematocrit 46.2 % (37-53); Lymphocytes # 0.7 10^3/uL (0.8-4.8); Lymphocytes % 7.2 %; Mean Corpuscular HGB Conc 33.5 g/dL (30-55); Mean Corpuscular Hemoglobin 30.6 pg (27-33); Mean Corpuscular Volume 91.1 fl (82-101); Mean Platelet Volume 9.7 fL (7.4-10.4); Monocytes # 0.4 10^3/uL (0.2-0.9); Monocytes % 3.6 %; Neutrophils # 8.88 10^3/uL (1.8-7.7); Neutrophils % 88.5 %; Nucleated Red Blood Cells % 0 %; Platelet Count 194 10^3/cmm (157-399); Red Blood Count 5.07 10^6/uL (3.85-5.65); White Blood Count 10.03 10^3/uL (3.29-11.43)
[2024-03-16 20:38] VITALS: BP 152/79; PULSE 77; RESP 24; O2SAT 94
[2024-03-16 20:38] LABS: Alanine Aminotransferase 26 U/L (0-41); Albumin Level 4.8 g/dL (3.5-5.2); Alkaline Phosphatase 104 U/L (40-130); Aspartate Amino Transferase 22 U/L (0-40); Blood Urea Nitrogen 20 mg/dL (8-23); Calcium 9.4 mg/dL (8.5-10.5); Carbon Dioxide 26 mmol/L (22-29); Chloride 97 mmol/L (98-107); Creatinine Clr Calc Pharmacy 72.4284; Globulin 2.6 g/dL (1.3-4.6); Glomerular Filtration Rate 74.3 mL/min (90-130); Glucose 136 mg/dL (65-115); Osmolality Calculated 285 mOsm/kg (285-295); Sodium 135 mmol/L (136-145); Total Bilirubin 0.6 mg/dL (0.15-1.2); Total Protein 7.4 g/dL (6.6-8.7)
--- NOTE | 2024-03-16 20:50 | ED_ITS ---
HPI - Nausea/Vomiting/Diarrhea 2 General: Chief complaint: Nausea/Vomiting/Diarrhea Stated complaint: n/v dizzy headache Time Seen by Provider: 03/16/24 19:55 History of Present Illness: 68-year-old male with history of hyperte nsion and hyperlipidemia who presents the emergency room with nausea and vomiting. He says he and his both had nausea and vomiting after eating some beets today. Also had some diarrhea. No focal abdominal pain. No fevers. No altered mental status. Related Data Home Medications Medication Instructions Recorded Confirmed Vitamin C 1 tab PO DAILY 12/03/20 06/20/23 diphenhydramine HCl 25 mg tablet 25 mg PO Q6H PRN Allergy Symptoms 12/03/20 06/20/23 (Benadryl Allergy) multivit,calc,mins-folic 240 1 tab PO DAILY 12/03/20 06/20/23 mcg-vit K1 30 mcg-lycopene 300 mcg tablet (One-A-Day Men's Complete) [id number]-[id number] palm-min 17 1 cap PO DAILY 12/03/20 06/20/23 capsule (Prostate Therapy capsule) vitamin E 1 tab PO DAILY 12/03/20 06/20/23 atorvastatin 20 mg tablet 20 mg PO DAILY 06/24/22 06/20/23 losartan 50 mg tablet 50 mg PO BID 06/24/22 06/20/23 pantoprazole 40 mg tablet,delayed 40 mg PO BID 06/24/22 06/20/23 release Previous Rx's Medication Instructions Recorded ondansetron 8 mg disintegrating 8 mg PO Q6H #14 tabs 03/16/24 tablet Allergies Allergy/AdvReac Type Severity Reaction Status Date / Time acetaminophen [From Tylenol] Allergy Unknown Verified 06/20/23 10:57 STERIODS Allergy Unknown Uncoded 06/20/23 10:57 Review of Systems 2 Narrative: Constitutional symptoms: Negative except as documented in HPI. Skin symptoms: Negative except as documented in HPI. Eye symptoms: Negative except as documented in HPI. ENMT symptoms: Negative except as documented in HPI. Respiratory symptoms: Negative except as documented in HPI. Cardiovascular symptoms: Negative except as documented in HPI. Gastrointestinal symptoms: Negative except as documented in HPI. Genitourinary symptoms: Negative except as documented in HPI. Musculoskeletal symptoms: Negative except as documented in HPI. Neurologic symptoms: Negative except as documented in HPI. Psychiatric symptoms: Negative except as documented in HPI. Endocrine symptoms: Negative except as documented in HPI. PFSH ED 2 PFSH: Medical History History of colon polyps Recurrent right inguinal hernia Hypertension Coffee ground emesis Surgical History Status post colonoscopy Status post right inguinal hernia repair Social History Smoking and tobacco/nicotine status: never used tobacco/nicotine Alcohol intake: former Physical Exam 2 Narrative: EXAM NARRATIVE: General: Alert, no acute distress. Skin: Warm, dry. Head: Normocephalic, atraumatic. Neck: Supple, trachea midline. Eye: Extraocular movements are intact. Ears, nose, mouth and throat: Tacky oral mucosa Cardiovascular: Regular, Normal peripheral perfusion. Respiratory: Lungs are clear to auscultation, respirations are non-labored, breath sounds are equal, Symmetrical chest wall expansion. Gastrointestinal: Soft, Nontender, Non distended Musculoskeletal: Normal ROM, no deformity. Neurological: Alert and oriented, No focal neurological deficit observed. Psychiatric: Cooperative, appropriate mood & affect. Course 2 Vital Signs: Vital signs: Vital Signs Temperature 97.5 F L 03/16/24 19:47 Pulse Rate 77 03/16/24 20:38 Respiratory Rate 24 H 03/16/24 20:38 Blood Pressure 152/79 03/16/24 20:38 Pulse Oximetry 94 03/16/24 20:38 Oxygen Delivery Me thod Room Air 03/16/24 20:38 MDM - Nausea/Vomiting/Diarrhea Medical Decision Making Medical decision making: Differential diagnosis for this patient with nausea and vomiting including but not limited to and based on the above HPI, review of systems and physical exam: Urinary tract infection. Appendicitis. Cholecystis. colitis. small bowel obstruction. crohn's flare. pancreatitis. gastritis. peptic ulcer. cyclic vomiting. Viral illness. Influenza. COVID. - Workup - labwork and imaging ordered to evaluate, rule in and rule out above pathologies. Lab Review: Laboratory results were reviewed and interpreted by myself the emergency room physician. Patient's lab work is unremarkable. No leukocytosis. No anemia. No renal failure. I reviewed the patient's medical record. Reexamination: Patient remained stable. No increased work of breathing. No altered mental status. No focal motor deficits. Patient says he feels quite a bit better and is given going home. Assessment and plan: Vomiting Dehydration Gastroenteritis ?IV Zofran and a normal saline bolus. Home with one 8 mg Zofran as pharmacies closed. - Discharged home - Discussed plan with patient. Answered any questions. - Evaluation and treatment of this problem were appropriate in the emergency setting. Lab Data 03/16/24 20:15 03/16/24 20:15 Laboratory Results WBC 10.03 10^3/uL (3.29-11.43) 03/16/24 20:15 RBC 5.07 10^6/uL (3.85-5.65) 03/16/24 20:15 Hgb 15.50 g/dL (11.27-16.99) 03/16/24 20:15 Hct 46.2 % (37-53) 03/16/24 20:15 MCV 91.1 fl (82-101) 03/16/24 20:15 MCH 30.6 pg (27-33) 03/16/24 20:15 MCHC 33.5 g/dL (30-55) 03/16/24 20:15 RDW 13.0 % (12.1-15.1) 03/16/24 20:15 Plt Count 194 10^3/cmm (157-399) 03/16/24 20:15 MPV 9.7 fL (7.4-10.4) 03/16/24 20:15 Neut % (Auto) 88.5 % 03/16/24 20:15 Lymph % (Auto) 7.2 % 03/16/24 20:15 [place] % (Auto) 3.6 % 03/16/24 20:15 Eos % (Auto) 0.1 % 03/16/24 20:15 Baso % (Auto) 0.2 % 03/16/24 20:15 Neut # (Auto) 8.88 10^3/uL (1.8-7.7) H 03/16/24 20:15 Lymph # (Auto) 0.7 10^3/uL (0.8-4.8) L 03/16/24 20:15 [place] # (Auto) 0.4 10^3/uL (0.2-0.9) 03/16/24 20:15 Eos # (Auto) 0.0 10^3/uL (0.0-0.8) 03/16/24 20:15 Baso # (Auto) 0.0 10^3/uL (0.0-0.1) 03/16/24 20:15 Nucleated RBC % (auto) 0 % 03/16/24 20:15 Nucleated RBCs # 0.0 /100WBC 03/16/24 20:15 Sodium 135 mmol/L (136-145) L 03/16/24 20:15 Potassium 4.0 mmol/L (3.5-5.1) 03/16/24 20:15 Chloride 97 mmol/L (98-107) L 03/16/24 20:15 Carbon Dioxide 26 mmol/L (22-29) 03/16/24 20:15 Anion Gap 16.0 (5-19) 03/16/24 20:15 BUN 20 mg/dL (8-23) 03/16/24 20:15 Creatinine 1.0 mg/dL (0.7-1.2) 03/16/24 20:15 GFR Calculation 74.3 mL/min (90-130) L 03/16/24 20:15 Glucose 136 mg/dL (65-115) H 03/16/24 20:15 Calculated Osmolality 285 mOsm/kg (285-295) 03/16/24 20:15 Calcium 9.4 mg/dL (8.5-10.5) 03/16/24 20:15 Total Bilirubin 0.6 mg/dL (0.15-1.2) 03/16/24 20:15 AST 22 U/L (0-40) 03/16/24 20:15 ALT 26 U/L (0-41) 03/16/24 20:15 Alkaline Phosphatase 104 U/L (40-130) 03/16/24 20:15 Total Protein 7.4 g/dL (6.6-8.7) 03/16/24 20:15 Albumin 4.8 g/dL (3.5-5.2) 03/16/24 20:15 Globulin 2.6 g/dL (1.3-4.6) 08/24/24 20:15 No radiology studies performed this visit Discharge Plan Discharge Patient Disposition: Home Clinical Impression: Gastroenteritis, Dehydration Condition: Stable Prescriptions: New ondansetron 8 mg tablet,disintegrating 8 mg PO Q6H Qty: 14 0RF Rx Instructions: Take 1/2-1 tab every 6 hours as needed for nausea and vomiting No Action multivit,calc,gjr-ZV-C4-lycop [One-A-Day Men's Complete] 240 mcg-30 mcg- 300 mcg Tablet 1 tab PO DAILY Vitamin C 1 tab PO DAILY vitamin E 1 tab PO DAILY diphenhydramine HCl [Benadryl Allergy] 25 mg Tablet 25 mg PO Q6H PRN (Reason: Allergy Symptoms) Prostate Therapy Capsule 1 cap PO DAILY losartan 50 mg tablet 50 mg PO BID atorvastatin 20 mg tablet 20 mg PO DAILY pantoprazole 40 mg tablet,delayed release (DR/EC) 40 mg PO BID Discharge Orders: Discharge ED (Routine); Ordered 03/16/24 Ordered By: Joslyn Batista Referrals: Nilda Coleman PA-C [Primary Care Provider] - Discharge Diet: Usual diet Discharge Activity: Increase activity as tolerated Patient Instructions: Gastroenteritis (ED) Activity Restrictions/Additional Instructions: Thank you for choosing [facility] for your healthcare needs today. Please realize this is an emergency room and that we are providing you with a medical screening exam and this may not be complete and all inclusive of all the testing and or work up that you may need to determine your ailment or severity of your illness. You have been screened and evaluated and felt safe for discharge. Health conditions do change or evolve sometimes and as such it is important that you follow up with your Primary Doctor to be re checked, 3-5 days is a general good time frame for follow up. You are always welcome to return to the ED for re assessment if your symptoms are worsening or you have new concerns Coding Level of Care Code ED Heat Transfer Technician for Azucena Richardson
--- NOTE | 2024-03-16 21:19 | PC.NURSE ---
pt was sent home with 2 tab ondansetron 4mg
[2024-03-16 21:20] VITALS: BP 140/79; PULSE 80; RESP 19; O2SAT 96
== END 2024-03-16 21:24 | disposition home or self-care (01) ==
PROVIDERS: Emergency Provider Emergency Medicine; PCP Physician Assistant
DX: K52.9 Noninfective gastroenteritis and colitis, unspecified (principal); E86.0 Dehydration; I10 Essential (primary) hypertension
CPT/HCPCS: 80053; 85025; 96374; 99284; J2405; J7030

== ENCOUNTER → 2024-06-13 07:56 | Outpatient (BNVA) | payer MEDICARE, SELFPAY | PROVIDERS: PCP Physician Assistant; Visit Provider Nurse Practitioner Family | DX: B35.3 Tinea pedis (principal); D23.5 Other benign neoplasm of skin of trunk; L57.8 Other skin changes due to chronic exposure to nonionizing radiation; L82.1 Other seborrheic keratosis; L91.8 Other hypertrophic disorders of the skin | CPT/HCPCS: 99214 ==

== ENCOUNTER → 2025-06-12 07:54 | Outpatient (BNVA) | payer MEDICARE, SELFPAY | PROVIDERS: PCP Physician Assistant; Visit Provider Nurse Practitioner Family | DX: L57.8 Other skin changes due to chronic exposure to nonionizing radiation (principal); L81.4 Other melanin hyperpigmentation; L82.1 Other seborrheic keratosis; D18.01 Hemangioma of skin and subcutaneous tissue; L91.8 Other hypertrophic disorders of the skin; R20.8 Other disturbances of skin sensation; L53.8 Other specified erythematous conditions; Z78.9 Other specified health status; R58 Hemorrhage, not elsewhere classified; L29.89 Other pruritus | CPT/HCPCS: 17110; 99213 ==